=== PATIENT | female | born 1990 | race Asian ===

== ENCOUNTER 2018-10-20 10:51 | Emergency (ER) | payer OTHER ==
[2018-10-20] MEDS ORDERED: Acetaminophen/HYDROcodone 325-5 MG Tab PO ONE (11:46)
--- NOTE | 2018-10-20 11:54 | EDM.PDOC ---
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 She states her LMP was . She had a + test at home. She started bleeding heavily with large clots 2 weeks ago. She reports the bleeding has been intermittent, but she is having "severe cramping." She denies back pain, chills, fever, weakness or fatigue. She took 4 baby aspirin for the pain but continues to have pain. She is concerned she may have retained products. She has history . She reports being B positive. She is accompanied by her spouse. She does not have a compounding pharmacy technician or PCP. She recently moved her from the [facility]. She is in no apparent distress. Onset: Today Onset Date: 10/20/18 Onset Time: 09:00 Duration: Getting Worse Location: Reports: Abdomen, Pelvis Quality: Reports: Ache Severity: Mild Improves with: Reports: Other Worsens with: Reports: None Associated Symptoms: Denies: Chest Pain, Fever/Chills, Nausea/Vomiting, Shortness of Breath, Weakness Pelvic Pain Score (Numeric/FACES): 7 - Related Data Allergies Allergy/AdvReac Type Severity Reaction Status Date / Time No Known Allergies Allergy Verified 10/20/18 11:07 Home Meds: Home Meds Naproxen 250 mg PO BID PRN 10 Days #20 tablet 10/20/18 [Rx] Pnv No.95/Ferrous Fum/Folic AC [ Caplet] 1 each PO DAILY 10/20/18 [ History] Past Medical History - Past Health History Medical/Surgical History: Denies Medical/Surgical History Social & Family History - Tobacco Use Smoking Status *Q: Never Smoker - Recreational Drug Use Recreational Drug Use: No ED ROS GENERAL - Review of Systems Review Of Systems: See Below Constitutional: Denies: Fever, Chills HEENT: Reports: Glasses Respiratory: Denies: Shortness of Breath Cardiovascular: Denies: Chest Pain Endocrine: Reports: No Symptoms GI/Abdominal: Reports: Abdominal Pain. Denies: Constipation, Diarrhea : Reports: Irregular Menses, Pain Musculoskeletal: Reports: No Symptoms Skin: Reports: No Symptoms Neurological: Reports: No Symptoms Psychiatric: Reports: No Symptoms Hematologic/Lymphatic: Reports: No Symptoms Immunologic: Reports: No Symptoms ED EXAM, GI/ABD - Physical Exam Exam: See Below General Appearance: Alert, WD/WN, No Apparent Distress Respiratory/Chest: No Respiratory Distress, Lungs Clear, Normal Breath Sounds, No Accessory Muscle Use, Chest Non-Tender Cardiovascular: Normal Peripheral Pulses, Regular Rate, Rhythm, No Edema, No Gallop, No JVD, No Murmur, No Rub GI/Abdominal Exam: Normal Bowel Sounds, Soft, Non-Tender, No Organomegaly, No Distention, No Abnormal Bruit, No Mass, Pelvis Stable Back Exam: Normal Inspection, Full Range of Motion Extremities: Normal Inspection, Normal Range of Motion, Non-Tender, No Pedal Edema, Normal Capillary Refill Neurological: Alert, Oriented, CN II-XII Intact, Normal Cognition, Normal Gait, Normal Reflexes, No Motor/Sensory Deficits Psychiatric: Normal Affect, Normal Mood Skin Exam: Warm, Dry, Intact, Normal Color, No Rash Lymphatic: No Adenopathy Course - Vital Signs Last Recorded V/S: Last Vital Signs Temp 98.7 F 10/20/18 11:04 Pulse 81 10/20/18 11:04 Resp 18 10/20/18 11:04 BP 109/71 10/20/18 11:04 Pulse Ox 100 10/20/18 11:04 - Orders/Labs/Meds Orders: Active Orders 24 hr Category Date Time Status PATIENT RETYPE [BBK] Routine Lab 10/20/18 14:10 Ordered URINALYSIS W/O MICROSCOPIC [UA W/O MICROSCOPIC] [URIN] Lab 10/20/18 13:04 Ordered Stat Labs: Laboratory Tests 10/20/18 10/20/18 10/20/18 Range/Units 12:25 13:09 13:09 WBC 9.74 (3.98-10.04) K/mm3 RBC 4.59 (3.98-5.22) M/mm3 Hgb 12.0 (11.2-15.7) gm/L Hct 36.9 (34.1-44.9) % MCV 80.4 (79.4-94.8) fl MCH 26.1 (25.6-32.2) pg MCHC 32.5 (32.2-35.5) g/dl RDW Std Deviation 41.2 (36.4-46.3) fL Plt Count 233 (182-369) K/mm3 MPV 10.6 (9.4-12.3) fl Neut % (Auto) 78.8 H (34.0-71.1) % Lymph % (Auto) 14.6 L (19.3-51.7) % [place] % (Auto) 5.2 (4.7-12.5) % Eos % (Auto) 1.0 (0.7-5.8) Baso % (Auto) 0.2 (0.1-1.2) % Neut # (Auto) 7.67 H (1.56-6.13) K/mm3 Lymph # (Auto) 1.42 (1.18-3.74) K/mm3 [place] # (Auto) 0.51 H (0.24-0.36) K/mm3 Eos # (Auto) 0.10 (0.04-0.36) K/mm3 Baso # (Auto) 0.02 (0.01-0.08) K/mm3 Sodium (136-145) mEq/L Potassium (3.5-5.1) mEq/L Chloride (98-107) mEq/L Carbon Dioxide (21-32) mEq/L Anion Gap (5-15) BUN (7-18) mg/dL Creatinine (0.55-1.02) mg/dL Est Cr Clr Drug Dosing mL/min Estimated GFR (MDRD) (>60) mL/min BUN/Creatinine Ratio (14-18) Glucose (74-106) mg/dL Calcium (8.5-10.1) mg/dL Total Bilirubin (0.2-1.0) mg/dL AST (15-37) U/L ALT (14-59) U/L Alkaline Phosphatase (46-116) U/L Total Protein (6.4-8.2) g/dl Albumin (3.4-5.0) g/dl Globulin gm/dL Albumin/Globulin Ratio (1-2) HCG, Quant 2794.0 mIU/mL Urine HCG, Qual Positive (NEGATIVE) Blood Type 10/20/18 10/20/18 Range/Units 13:09 13:09 WBC (3.98-10.04) K/mm3 RBC (3.98-5.22) M/mm3 Hgb (11.2-15.7) gm/L Hct (34.1-44.9) % MCV (79.4-94.8) fl MCH (25.6-32.2) pg MCHC (32.2-35.5) g/dl RDW Std Deviation (36.4-46.3) fL Plt Count (182-369) K/mm3 MPV (9.4-12.3) fl Neut % (Auto) (34.0-71.1) % Lymph % (Auto) (19.3-51.7) % [place] % (Auto) (4.7-12.5) % Eos % (Auto) (0.7-5.8) Baso % (Auto) (0.1-1.2) % Neut # (Auto) (1.56-6.13) K/mm3 Lymph # (Auto) (1.18-3.74) K/mm3 [place] # (Auto) (0.24-0.36) K/mm3 Eos # (Auto) (0.04-0.36) K/mm3 Baso # (Auto) (0.01-0.08) K/mm3 Sodium 138 (136-145) mEq/L Potassium 3.8 (3.5-5.1) mEq/L Chloride 103 (98-107) mEq/L Carbon Dioxide 26 (21-32) mEq/L Anion Gap 12.8 (5-15) BUN 6 L (7-18) mg/dL Creatinine 0.7 (0.55-1.02) mg/dL Est Cr Clr Drug Dosing 93.40 mL/min Estimated GFR (MDRD) > 60 (>60) mL/min BUN/Creatinine Ratio 8.6 L (14-18) Glucose 97 (74-106) mg/dL Calcium 8.7 (8.5-10.1) mg/dL Total Bilirubin 0.9 (0.2-1.0) mg/dL AST 14 L (15-37) U/L ALT 16 (14-59) U/L Alkaline Phosphatase 57 (46-116) U/L Total Protein 7.3 (6.4-8.2) g/dl Albumin 3.7 (3.4-5.0) g/dl Globulin 3.6 gm/dL Albumin/Globulin Ratio 1.0 (1-2) HCG, Quant mIU/mL Urine HCG, Qual (NEGATIVE) Blood Type B POSITIVE Meds: Medications Discontinued Medications Generic Name Dose Route Start Last Admin Trade Name Finn PRN Reason Stop Dose Admin Hydrocodone Bitart/Acetaminophen 1 tab 10/20/18 11:46 10/20/18 12:32 [place] 325-5 Mg PO 10/20/18 11:47 1 tab ONETIME ONE Administration - Re-Assessments/Exams Free Text/Narrative Re-Assessment/Exam: 10/20/18 14:03 28 y/o female presented to ER with cc severe cramping after having a miscarriage 2 weeks ago. Her labs were as follows WBC 9.74 H & H 12.0/36.9 NA + 138 K+ 3.8 CHOL 103 CO2 26 BUN 6 CREATINE 0.7. HCG positive, + B ABO. HCG quantitative is 2794.0 Her ultrasound complicated fluid within the pelvis possibly due to blood. complicated area within the left ovary measuring up to 2.9 cm presumably due to hemorrhagic cyst. incidental nabothian cyst. no endometrial abnormality is seen. I will discharge home with Naprosyn for menstrual cramps. I recommend she follow up with compounding pharmacy technician. Referral was given for Dr. Shaffer. Instructed to return to the ER for any new or acute worsening symptoms. She verbalized understanding and is comfortable with plan for discharge. Departure - Departure Time of Disposition: 14:08 Disposition: Home, Self-Care 01 Clinical Impression: Pain in pelvis, Dysmenorrhea, Nabothian (gland) cyst or follicle - Discharge Information Prescriptions: Naproxen 250 mg PO BID PRN 10 Days #20 tablet PRN Reason: pelvic pain Instructions: Pelvic Pain, Female, [id number], Pain Without a Known Cause, Dysmenorrhea, [id number] Referrals: PCP,None [Primary Care Provider] - Howard Matthew MD [Physician] - Forms: ED Department Discharge Additional Instructions: You have been diagnosis with pelvic pain and cramping. Your ultrasound revealed nabothian cyst and a hemorrhagic cyst. I recommend you follow up with compounding pharmacy technician. I gave you a referral for Dr. Matthew. You have been given a RX for Naprosyn take this as needed for cramping and pain. Return to the ER for any new or acute worsening symptoms. - My Orders Last 24 Hours: My Active Orders 10/20/18 13:04 URINALYSIS W/O MICROSCOPIC [UA W/O MICROSCOPIC] [URIN] Stat 10/20/18 14:10 PATIENT RETYPE [BBK] Routine - Assessment/Plan Last 24 Hours: My Active Orders 10/20/18 13:04 URINALYSIS W/O MICROSCOPIC [UA W/O MICROSCOPIC] [URIN] Stat 10/20/18 14:10 PATIENT RETYPE [BBK] Routine
--- NOTE | 2018-10-20 13:13 | US ---
Pelvic ultrasound: Multiple real-time images were obtained transvaginally. Uterus is anteverted. No endometrial abnormality is seen. Slightly complicated fluid is seen within the cul-de-sac and difficult to exclude small amount of blood. Complicated area is noted within the left ovary measuring up to 2.9 cm in greatest dimension presumably representing hemorrhagic cyst. Follicles are seen within the ovaries. Incidental nabothian cyst is noted. Measurements: Uterus: Length 10.0 cm, AP height 4.5 cm, transverse width 6.5 cm Right ovary: 3.4 x 1.5 x 2.1 cm Left ovary: 6.8 x 4.7 x 4.4 cm Impression: 1. Complicated fluid within the pelvis possibly due to blood. 2. Complicated area within the left ovary measuring up to 2.9 cm presumably due to hemorrhagic cyst. 3. Incidental nabothian cyst. 4. No endometrial abnormality is seen. Diagnostic code #3
== END 2018-10-20 14:31 | disposition home or self-care (01) ==
LOC: JD.ED 10:51
DX: O03.6 Delayed or excessive hemorrhage following complete or unspecified spontaneous abortion (principal); N94.6 Dysmenorrhea, unspecified; N88.8 Other specified noninflammatory disorders of cervix uteri
CPT/HCPCS: 36415; 76830; 80053; 81025; 84702; 85025; 86900; 86901; 99284; A9270; 99283

== ENCOUNTER 2018-10-21 16:24 | Day surgery (SDC) | payer OTHER ==
[2018-10-21] MEDS ORDERED: HYDROmorphone 0.5 MG/0.5 ML Syringe IVPUSH STA (16:57)
[2018-10-21] MEDS ORDERED: Sodium Chloride 0.9% 1,000 ML ONE (17:50)
[2018-10-21] MEDS ORDERED: Lactated Ringers 1,000 ML IV ONE (17:58)
[2018-10-21] MEDS ORDERED: Sodium Chloride 0.9% 1,000 ML IV ONE (18:00)
--- NOTE | 2018-10-21 18:39 | EDM.PDOC ---
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 She was seen in the ED yesterday for similar symptoms, was sent home with Naprosyn and recommended f/u with CERAMIC TILE SETTER. She received Wheeler while in the ED and states she was "out of it all night", he suspects from the medication. Also tried ibuprofen which provided some relief. The pain was still constant last night, but there was a sudden increase in pain this AM "10 times worse than yesterday" accompanied by new onset radiating pain from the pelvis to "the ribs" and lightheadedness. She states the pain is worse with movement and she "feels bloated" in the abdomen. She passed out today "at least 5 times" per the . She denies any F/C, but was nauseated and had 1 episode of emesis today that was "just water" per pt. She states her vaginal bleeding has also increased today, from spotting to almost filling a 1 pad. She has h/o of appendectomy in the [facility]. No current PCP or CERAMIC TILE SETTER; was referred yesterday to CERAMIC TILE SETTER Dr. Matthew. Right Lower Abdomen Pain Score (Numeric/FACES): 10 - Related Data Allergies Allergy/AdvReac Type Severity Reaction Status Date / Time No Known Allergies Allergy Verified 10/21/18 16:45 Home Meds: Home Meds Naproxen 250 mg PO BID PRN 10 Days #20 tablet 10/20/18 [Rx] Pnv No.95/Ferrous Fum/Folic AC [ Caplet] 1 each PO DAILY 10/20/18 [ History] Past Medical History - Past Health History Medical/Surgical History: Denies Medical/Surgical History HEENT History: Reports: Impaired Vision Cardiovascular History: Reports: None Respiratory History: Reports: None Gastrointestinal History: Reports: None Genitourinary History: Reports: None 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 REPAIRMAN History: Reports: Polycystic Ovaries, Musculoskeletal History: Reports: None Neurological History: Reports: None Psychiatric History: Reports: None Endocrine/Metabolic History: Reports: None Hematologic History: Reports: None Immunologic History: Reports: None Oncologic (Cancer) History: Reports: None Dermatologic History: Reports: None - Infectious Disease History Infectious Disease History: Reports: None - Past Surgical History Head Surgeries/Procedures: Reports: None Oncologic Surgical History: Reports: None Social & Family History - Family History Family Medical History: Noncontributory - Tobacco Use Smoking Status *Q: Never Smoker - Caffeine Use Caffeine Use: Reports: Soda - Recreational Drug Use Recreational Drug Use: No ED ROS GENERAL - Review of Systems Review Of Systems: See Below Constitutional: Reports: Weakness. Denies: Fever, Chills HEENT: Reports: No Symptoms Respiratory: Reports: Shortness of Breath, Pleuritic Chest Pain. Denies: Cough Cardiovascular: Reports: Lightheadedness, Syncope. Denies: Chest Pain, Blood Pressure Problem, Dyspnea on Exertion, Edema, Palpitations Endocrine: Reports: Fatigue GI/Abdominal: Reports: Abdominal Pain (lower quadrants> upper quadrants; radiates from pelvis to "the ribs"), Nausea, Vomiting (x1 earlier today). Denies: Black Stool, Bloody Stool, Constipation, Diarrhea, Decreased Appetite, Hematochezia : Reports: Pain (pelvic pain, "10x worse than yesterday"), Other (vaginal bleeding; spotting increased to 1 pad today). Denies: Discharge, Dysuria, Flank Pain, Frequency, Hematuria Musculoskeletal: Reports: No Symptoms Skin: Reports: Pallor, Diaphoresis Neurological: Reports: Dizziness, Syncope, Difficulty Walking (2/2 dizziness), Weakness. Denies: Headache Psychiatric: Reports: No Symptoms ED EXAM, GI/ABD - Physical Exam Exam: See Below Exam Limited By: No Limitations General Appearance: Alert, WD/WN, Moderate Distress Eyes: Bilateral: Normal Appearance, EOMI Ears: Normal External Exam, Hearing Grossly Normal Throat/Mouth: Normal Inspection, Normal Lips, Normal Teeth, Normal Gums, Normal Oropharynx, Normal Voice, No Airway Compromise Head: Atraumatic, Normocephalic Neck: Normal Inspection, Supple, Non-Tender, Full Range of Motion Respiratory/Chest: No Respiratory Distress, Lungs Clear, Normal Breath Sounds, No Accessory Muscle Use, Chest Non-Tender Cardiovascular: Normal Peripheral Pulses, Regular Rate, Rhythm, No Edema, No Gallop, No JVD, No Murmur, No Rub GI/Abdominal Exam: Soft, No Organomegaly, No Abnormal Bruit, No Mass, Pelvis Stable, Distended, Tender (lower quadrants), Abnormal Bowel Sounds (hyperactive) (Female) Exam: Deferred (pt had syncopal episode on the way to exam table) Back Exam: Normal Inspection Extremities: Normal Inspection, Normal Range of Motion, Non-Tender, Normal Capillary Refill, No Pedal Edema Neurological: Alert, Oriented, CN II-XII Intact, Normal Cognition, Normal Reflexes, No Motor/Sensory Deficits, Slow to Respond Psychiatric: Anxious, Tearful Skin Exam: Warm, Dry, Intact, Pallor Course - Vital Signs Last Recorded V/S: Last Vital Signs Temp 98.4 F 10/21/18 16:49 Pulse 75 10/21/18 16:49 Resp 14 10/21/18 16:49 BP 96/56 L 10/21/18 16:49 Pulse Ox 99 10/21/18 16:49 - Orders/Labs/Meds Orders: Active Orders 24 hr Category Date Time Status TYPE AND SCREEN [BBK] Stat Lab 10/21/18 17:30 Received Lactated Ringers [Ringers, Lactated] 1,000 ml Med 10/21/18 17:58 Active IV .BOLUS Sodium Chloride 0.9% [Normal Saline] 1,000 ml Med 10/21/18 18:00 Active IV ONETIME Transfuse PRBC [Transfuse Red Blood Cells] [COMM] Stat Oth 10/21/18 18:05 Ordered Medication Orders Lactated Ringer's (Ringers, Lactated) 1,000 mls @ 999 mls/hr IV .BOLUS ONE Stop: 10/21/18 18:58 Last Admin: 10/21/18 17:59 Dose: 999 mls/hr Sodium Chloride (Normal Saline) 1,000 mls @ 999 mls/hr IV ONETIME ONE Stop: 10/21/18 19:00 Last Admin: 10/21/18 18:01 Dose: 999 mls/hr Labs: Laboratory Tests 10/21/18 10/21/18 Range/Units 17:00 17:00 Hgb 10.8 L (11.2-15.7) gm/L Hct 33.4 L (34.1-44.9) % HCG, Quant 1333.0 mIU/mL Meds: Medications Generic Name Dose Route Start Last Admin Trade Name Jeremyq PRN Reason Stop Dose Admin Lactated Ringer's 1,000 mls @ 999 mls/hr 10/21/18 17:58 10/21/18 17:59 Ringers, Lactated IV 10/21/18 18:58 999 mls/hr .BOLUS ONE Administration Sodium Chloride 1,000 mls @ 999 mls/hr 10/21/18 18:00 10/21/18 18:01 Normal Saline IV 10/21/18 19:00 999 mls/hr ONETIME ONE Administration Discontinued Medications Generic Name Dose Route Start Last Admin Trade Name Jeremyq PRN Reason Stop Dose Admin Hydromorphone HCl 0.25 mg 10/21/18 16:57 10/21/18 17:00 Dilaudid IVPUSH 10/21/18 16:58 0.25 mg NOW STA Administration Sodium Chloride Confirm 10/21/18 17:50 10/21/18 18:03 Normal Saline Administered 10/21/18 17:51 Not Given Dose 1,000 mls @ as directed [facility] Re-Assessments/Exams Free Text/Narrative Re-Assessment/Exam: 10/21/18 16:57 Ordered Hgb and Hct, HCG Quantitative Dilaudid 0.25mg IV Push for pain 10/21/18 17:20 Hgb has dropped to 10.8 today (12 yesterday) Hct has dropped to 33.4 (36.9) HCG Quantitative has dropped to 1333 today (2794 yesterday)--> likely not Pt is TTP lower quadrants on exam. Abdomen feels "full". I suspect she is losing blood into the abdomen. Will do pelvic exam, Transvaginal U/S, and orthostatic VS. 10/21/18 17:30 Pt was put in a wheelchair by nursing and was on the way to [facility]ER[facility] TILE [facility] exam room when she passed out in the wheelchair. She did not fall. Nursing assisted her back into bed, 1L Bolus IVF started. At this time, she is hemodynamically unstable. I will not be able to perform the pelvic exam, orthostatics cannot be performed , and she will not be able to tolerate an U/S. I will call our on-call OBGYN Dr. Matthew for direction as she likely needs to go to the OR likely 2/2 internal bleeding. Type and Screen, PRBCs ordered (Blood Type B positive yesterday) 10/21/18 17:53 Called our on-call OBGYN Dr. Matthew and gave report. He will come see the patient. It is likely she will need to go to the OR for diagnostic laparoscopy to r/o either ectopic vs. ruptured hemorrhagic cyst. 10/21/18 18:10 Dr. Matthew talking with patient. Waiting for them to make the decision as to whether they would like to go to surgery. 10/21/18 18:39 Have transferred care to Dr. Matthew as he has taken pt to the OR for exploratory laparotomy. Departure - Departure Time of Disposition: 18:39 Disposition: DC/Tfer to Critical Access 66 Condition: Undetermined Clinical Impression: Hemorrhagic cyst, Syncope and collapse - Discharge Information *PRESCRIPTION DRUG MONITORING PROGRAM REVIEWED*: Not Applicable *COPY OF PRESCRIPTION DRUG MONITORING REPORT IN PATIENT LIDIA: Not Applicable Referrals: PCP,None [Primary Care Provider] - - My Orders Last 24 Hours: My Active Orders 10/21/18 17:30 TYPE AND SCREEN [BBK] Stat 10/21/18 17:58 Lactated Ringers [Ringers, Lactated] 1,000 ml IV .BOLUS 10/21/18 18:00 Sodium Chloride 0.9% [Normal Saline] 1,000 ml IV ONETIME 10/21/18 18:05 Transfuse PRBC [Transfuse Red Blood Cells] [COMM] Stat - Assessment/Plan Last 24 Hours: My Active Orders 10/21/18 17:30 TYPE AND SCREEN [BBK] Stat 10/21/18 17:58 Lactated Ringers [Ringers, Lactated] 1,000 ml IV .BOLUS 10/21/18 18:00 Sodium Chloride 0.9% [Normal Saline] 1,000 ml IV ONETIME 10/21/18 18:05 Transfuse PRBC [Transfuse Red Blood Cells] [COMM] Stat
--- NOTE | 2018-10-21 18:45 | PCM.HP ---
H&P History of Present Illness - General Date of Service: 10/21/18 Admit Problem/Dx: Intra-abdominal hemorrhage due to suspected hemorrhagic ovarian cyst Source of Information: Patient History Limitations: Reports: No Limitations - History of Present Illness Initial Comments - Free Text/Narative: Violeta Mendoza is a 28-year-old who presented to the emergency department for worsening abdominal pain this afternoon. She was seen yesterday in the emergency department and had an ultrasound performed at that time that showed, complicated fluid within the pelvis and a suspected hemorrhagic ovarian cyst on the left ovary measuring up to and 2.9 cm. She was discharged home with narcotics for pain control and continued to have pain throughout the evening. Later in the evening she had worsening of her pain that was not being able to be controlled by the narcotic medications and she had loss of consciousness at that time. Her partner reports that she lost consciousness approximately 4 more times between last evening and before arriving to the emergency department today. She reports that her pain is worse today than it was yesterday. It is a sharp pain in her lower abdomen but now is radiating into her upper abdomen especially on the right side. She rates the pain at 10/ 10. The pain is worse with movement. She reports that she does feel somewhat diaphoretic with this pain. Her significant other reports that she looks somewhat pale compared to her usual color. She had 1 episode of emesis but denies any continuing nausea. Patient did have a spontaneous approximately 3 weeks ago and has had light spotting today where she was soaking a light pad throughout the day. She is not passing any clots at this time. Onset of Symptoms: Reports: Gradual (Worsening since yesterday) Symptom Onset Date: 10/20/18 Duration of Symptoms: Reports: Constant Location: Reports: Abdomen, Pelvis Quality: Reports: Pressure, Sharp, Stabbing Severity: Severe Improves with: Reports: None Worsens with: Reports: Movement Associated Symptoms: Reports: Diaphoresis, Nausea/Vomiting. Denies: Fever/ Chills Right Lower Abdomen Pain Score (Numeric/FACES): 10 - Related Data Allergies/Adverse Reactions: Allergies Allergy/AdvReac Type Severity Reaction Status Date / Time No Known Allergies Allergy Verified 10/21/18 16:45 Home Medications: Home Meds Naproxen 250 mg PO BID PRN 10 Days #20 tablet 10/20/18 [Rx] Pnv No.95/Ferrous Fum/Folic AC [ Caplet] 1 each PO DAILY 10/20/18 [ History] Past Medical History - Past Health History Medical/Surgical History: Denies Medical/Surgical History HEENT History: Reports: Impaired Vision Cardiovascular History: Reports: None Respiratory History: Reports: None Gastrointestinal History: Reports: None Genitourinary History: Reports: None 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, Musculoskeletal History: Reports: None Neurological History: Reports: None Psychiatric History: Reports: None Endocrine/Metabolic History: Reports: None Hematologic History: Reports: None Immunologic History: Reports: None Oncologic (Cancer) History: Reports: None Dermatologic History: Reports: None - Infectious Disease History Infectious Disease History: Reports: None - Past Surgical History Head Surgeries/Procedures: Reports: None GI Surgical History: Reports: Appendectomy (Midline laparotomy) Oncologic Surgical History: Reports: None Social & Family History - Family History Family Medical History: Noncontributory - Tobacco Use Smoking Status *Q: Never Smoker - Caffeine Use Caffeine Use: Reports: Soda - Alcohol Use Alcohol Use History: No - Recreational Drug Use Recreational Drug Use: No H&P Review of Systems - Review of Systems: Review Of Systems: See Below General: Reports: Weakness, Fatigue. Denies: Fever, Chills, Malaise Pulmonary: Denies: Shortness of Breath, Wheezing, Cough Cardiovascular: Denies: Chest Pain, Palpitations, Dyspnea on Exertion Gastrointestinal: Reports: Abdominal Pain, Nausea, Vomiting. Denies: Constipation, Diarrhea Genitourinary: Denies: Dysuria, Frequency, Burning, Pain, Urgency Skin: Reports: Diaphoresis, Change in Color. Denies: Rash, Lesions Exam - Exam Exam: See Below - Vital Signs Vital Signs: Last Vital Signs Temp 36.9 C 10/21/18 16:49 Pulse 75 10/21/18 16:49 Resp 14 10/21/18 16:49 BP 96/56 L 10/21/18 16:49 Pulse Ox 99 10/21/18 16:49 Weight: 49.895 kg - Exam General: Alert, Oriented HEENT: Conjunctiva Clear, EOMI Neck: Supple, Trachea Midline Lungs: Clear to Auscultation, Normal Respiratory Effort Cardiovascular: Regular Rate, Regular Rhythm GI/Abdominal Exam: Soft, Distended, Guarding. No: Rigid, Rebound (Female) Exam: Deferred Extremities: No Pedal Edema, Normal Capillary Refill Skin: Warm, Dry, Intact Neuro Extensive - Mental Status: Normal Mood/Affect Psychiatric: Alert, Normal Affect, Normal Mood - Patient Data Lab Results Last 24 hrs: Laboratory Results - last 24 hr 10/21/18 10/21/18 Range/Units 17:00 17:00 Hgb 10.8 L (11.2-15.7) gm/L Hct 33.4 L (34.1-44.9) % HCG, Quant 1333.0 mIU/mL Result Diagrams: 10/21/18 17:00 Imaging Impressions Last 24 hrs: Transvaginal ultrasound from 10/20/2018 Findings: Uterus is anteverted. No endometrial abnormality is seen. Slightly complicated fluid is seen within the cul-de-sac and difficult to exclude small amount of blood., Complicated areas noted within the left ovary measuring up to 2.9 cm in greatest dimension presumably representing hemorrhagic cyst. Follicles are seen within the ovaries. Incidental nabothian cyst is noted. Measurements: Uterus: Length 10.0 cm, AP height 4.5 cm, transverse with 6.57 m Right ovary: 3.4 x 1.5 x 2.1 cm Left ovary: 6.8 x 4.7 x 4.4 cm Impression: 1. Complicated fluid within the pelvis possibly due to blood. 2. Complicated area within the left ovary measuring up to 2.9 cm presumably due to hemorrhagic cyst. 3. Incidental nabothian cyst. 4. no endometrial abnormality is seen. - Problem List (1) Hemorrhagic cyst SNOMED Code(s): 346745696, [id number] ICD Code: [id number] - Status: Acute Current Visit: Yes (2) Syncope and collapse SNOMED Code(s): 827313721 ICD Code: R55 - SYNCOPE AND COLLAPSE Status: Acute Current Visit: Yes (3) Pain in pelvis SNOMED Code(s): 24143345 ICD Code: R10.2 - PELVIC AND PERINEAL PAIN Status: Acute Current Visit: No Problem List Initiated/Reviewed/Updated: Yes Orders Last 24hrs: Active Orders 24 hr Category Date Time Status TYPE AND SCREEN [BBK] Stat Lab 10/21/18 17:30 Received Lactated Ringers [Ringers, Lactated] 1,000 ml Med 04/30/19 17:58 Active IV .BOLUS Sodium Chloride 0.9% [Normal Saline] 1,000 ml Med 10/21/18 18:00 Active IV ONETIME Transfuse PRBC [Transfuse Red Blood Cells] [COMM] Stat Oth 10/21/18 18:05 Ordered Medication Orders Lactated Ringer's (Ringers, Lactated) 1,000 mls @ 999 mls/hr IV .BOLUS ONE Stop: 10/21/18 18:58 Last Admin: 10/21/18 17:59 Dose: 999 mls/hr Sodium Chloride (Normal Saline) 1,000 mls @ 999 mls/hr IV ONETIME ONE Stop: 10/21/18 19:00 Last Admin: 10/21/18 18:01 Dose: 999 mls/hr Assessment/Plan Comment:: 28-year-old female with suspected intra-abdominal hemorrhage and abdominal/pelvic pain due to hemorrhagic cyst Patient has had drop in her hemoglobin from 12.0 on 10/20/2018 down to 10.8 today. She is having significant pain and has had multiple episodes of loss of consciousness. Discussed with patient that given the fact that this is most likely a ruptured hemorrhagic cyst leading to intra-abdominal bleeding she would have several options available to her. Discussed that she could consider watchful waiting with pain control as these typically resolve on their own without any additional intervention or she could consider having laparoscopy. Discussed with patient that this would likely be able to be performed laparoscopically and we would perform a diagnostic laparoscopy with possible ovarian cystectomy, possible oophorectomy, possible lysis of adhesions, possible laparotomy. Discussed the risks and benefits of both of these options and she desired to proceed with surgery. Consents were signed. Patient will be taken back to the OR for diagnostic laparoscopy with possible ovarian cystectomy, possible nephrectomy, possible lysis of adhesions and possible laparotomy. Patient currently having LR fluid bolus and we will continue LR at 125 mL per hour after bolus No antibiotics indicated for clean procedure We will monitor patient to see how she is doing after surgery to determine if she should be admitted for observation after or if she will be able to be discharged home Howard Matthew M.D. 6:54 PM 10/21/2018
--- NOTE | 2018-10-21 18:55 | PCM.PREANE ---
Preanesthetic Assessment - Anesthesia/Transfusion/Family Hx Anesthesia History: Prior Anesthesia Without Reaction Family History of Anesthesia Reaction: No Transfusion History: No Prior Transfusion(s) Intubation History: Unknown - Review of Systems Pulmonary: No Symptoms Cardiovascular: Palpitations, Lightheadedness Gastrointestinal: No Symptoms, Nausea, Vomiting Neurological: No Symptoms (motion sickness), Syncope Other: Reports: None - Physical Assessment NPO Status Date: 10/21/18 NPO Status Time: 12:45 Pulse: 75 O2 Sat by Pulse Oximetry: 99 Respiratory Rate: 14 Blood Pressure: 96/56 Temperature: 36.9 C Vital Signs: Last Vital Signs Temp 36.9 C 10/21/18 16:49 Pulse 75 10/21/18 16:49 Resp 14 10/21/18 16:49 BP 96/56 L 10/21/18 16:49 Pulse Ox 99 10/21/18 16:49 Height: 1.68 m Weight: 49.895 kg ASA Class: 2E Mental Status: Alert & Oriented x3 Airway Class: Mallampati = 2 Dentition: Reports: Normal Dentition, Missing Tooth/Teeth, Caries Thyro-Mental Finger Breadths: 3 Mouth Opening Finger Breadths: 3 ROM/Head Extension: Full Lungs: Clear to Auscultation, Normal Respiratory Effort Cardiovascular: Regular Rate, Regular Rhythm, No Murmurs - Lab Values: Laboratory Last Values Hgb 10.8 gm/L (11.2-15.7) L 10/21/18 17:00 Hct 33.4 % (34.1-44.9) L 10/21/18 17:00 HCG, Quant 1333.0 mIU/mL 10/21/18 17:00 Above labs reviewed and noted. - Allergies Allergies/Adverse Reactions: Allergies Allergy/AdvReac Type Severity Reaction Status Date / Time No Known Allergies Allergy Verified 10/21/18 16:45 - Anesthesia Plan Pre-Op Medication Ordered: None - Acknowledgements Anesthesia Type Planned: General Anesthesia Pt an Appropriate Candidate for the Planned Anesthesia: Yes Alternatives and Risks of Anesthesia Discussed w Pt/Guardian: Yes Pt/Guardian Understands and Agrees with Anesthesia Plan: Yes PreAnesthesia Questionnaire - Past Health History Medical/Surgical History: Denies Medical/Surgical History HEENT History: Reports: Impaired Vision Cardiovascular History: Reports: None Respiratory History: Reports: None Gastrointestinal History: Reports: None Genitourinary History: Reports: None 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, Musculoskeletal History: Reports: None Neurological History: Reports: None Psychiatric History: Reports: None Endocrine/Metabolic History: Reports: None Hematologic History: Reports: None Immunologic History: Reports: None Oncologic (Cancer) History: Reports: None Dermatologic History: Reports: None - Infectious Disease History Infectious Disease History: Reports: None - Past Surgical History Head Surgeries/Procedures: Reports: None GI Surgical History: Reports: Appendectomy (Midline laparotomy) Oncologic Surgical History: Reports: None - SUBSTANCE USE Smoking Status *Q: Never Smoker Recreational Drug Use History: No - HOME MEDS Home Medications: Home Meds Naproxen 250 mg PO BID PRN 10 Days #20 tablet 10/20/18 [Rx] Pnv No.95/Ferrous Fum/Folic AC [ Caplet] 1 each PO DAILY 10/20/18 [ History] - CURRENT (IN HOUSE) MEDS Current Meds: Current Medications Lactated Ringer's (Ringers, Lactated) 1,000 mls @ 999 mls/hr IV .BOLUS ONE Stop: 10/21/18 18:58 Last Admin: 10/21/18 17:59 Dose: 999 mls/hr Sodium Chloride (Normal Saline) 1,000 mls @ 999 mls/hr IV ONETIME ONE Stop: 10/21/18 19:00 Last Admin: 10/21/18 18:01 Dose: 999 mls/hr Discontinued Medications Hydromorphone HCl (Dilaudid) 0.25 mg IVPUSH NOW STA Stop: 10/21/18 16:58 Last Admin: 10/21/18 17:00 Dose: 0.25 mg Sodium Chloride (Normal Saline) Confirm Administered Dose 1,000 mls @ as directed .ROUTE .STK-MED ONE Stop: 10/21/18 17:51 Last Admin: 10/21/18 18:03 Dose: Not Given
[2018-10-21] MEDS ORDERED: Bupivacaine 0.5% 30 ML SDV ONE (18:57)
[2018-10-21] MEDS ORDERED: Dexamethasone 4 MG/ML 5 ML MDV ONE (19:08)
[2018-10-21] MEDS ORDERED: Etomidate 2 MG/ML 20 ML SDV IVPUSH ONE (19:08)
[2018-10-21] MEDS ORDERED: fentaNYL 100 MCG/2 ML SDV ONE ×2 (19:08→21:06)
[2018-10-21] MEDS ORDERED: Lactated Ringers 1,000 ML ONE ×3 (19:08→21:43)
[2018-10-21] MEDS ORDERED: Lidocaine 1% 6 ML ONE (19:08)
[2018-10-21] MEDS ORDERED: Rocuronium 50 MG/5 ML Vial ONE (19:08)
[2018-10-21] MEDS ORDERED: HYDROmorphone 0.5 MG/0.5 ML Syringe ONE ×2 (19:08→20:14)
[2018-10-21] MEDS ORDERED: Ketorolac 30 MG/ML SDV ONE (19:08)
[2018-10-21] MEDS ORDERED: Succinylcholine/Normal Saline 100 MG/5 ML Syringe ONE (19:08)
[2018-10-21] MEDS ORDERED: Ondansetron 4 MG/2 ML SDV ONE (19:08)
[2018-10-21] MEDS ORDERED: Midazolam 1 MG/ML 2 ML SDV ONE (19:09)
[2018-10-21] MEDS ORDERED: ePHEDrine 50 MG/ML SDV IVPUSH PRN (19:49)
[2018-10-21] MEDS ORDERED: HYDROmorphone 0.5 MG/0.5 ML Syringe IVPUSH PRN ×2 (19:49→23:29)
[2018-10-21] MEDS ORDERED: fentaNYL 100 MCG/2 ML SDV IVPUSH PRN (19:49)
[2018-10-21] MEDS ORDERED: Ondansetron 4 MG/2 ML SDV IVPUSH PRN (19:49)
[2018-10-21] MEDS ORDERED: diphenhydrAMINE 50 MG/ML SDV IVPUSH PRN (19:49)
[2018-10-21] MEDS ORDERED: Scopolamine 1.5 MG Transdermal Patch TRDERM ONE (19:50)
[2018-10-21] MEDS ORDERED: Neostigmine Methylsulfate 1 MG/ML 5 ML Syringe ONE (19:59)
[2018-10-21] MEDS ORDERED: Phenylephrine 1 MG in Sodium Chloride 0.9% 10 ML IV SCH (20:00)
[2018-10-21] MEDS ORDERED: ePHEDrine/Normal Saline 25 MG/5 ML Syringe ONE (20:00)
--- NOTE | 2018-10-21 22:30 | PCM.POSTAN ---
POST ANESTHESIA ASSESSMENT - MENTAL STATUS Mental Status: Alert - VITAL SIGNS Pulse Rate: 74 SaO2: 100 (2 LPM nasal cannula) Resp Rate: 11 Blood Pressure: 105/65 Temperature: 36.5 C - RESPIRATORY Respiratory Status: Respiratory Rate WNL, Airway Patent, O2 Saturation Stable, Supplemental Oxygen - CARDIOVASCULAR CV Status: Pulse Rate WNL, Blood Pressure Stable - GASTROINTESTINAL GI Status: No Symptoms - POST OP HYDRATION Hydration Status: Adequate & Stable
--- NOTE | 2018-10-21 22:57 | PCM.OPNOTE ---
- General Post-Op/Procedure Note Date of Surgery/Procedure: 10/21/18 Operative Procedure(s): Laparoscopic lysis of adhesions and left salpingectomy Findings: Approximately 400 mL of old blood noted within the abdomen and pelvis with removal of large portion of this using laparoscopic suction dip tanker. Grossly normal-appearing uterus and right fallopian tube and ovary. Left fallopian tube with dilation of the tube and bleeding noted from the fimbriated end with suspicion for possible ruptured ectopic . Left ovary with areas of suspected ruptured cyst with small amount of bleeding on initial evaluation. Adhesions were noted from the omentum to the anterior abdominal wall and the previous vertical midline incision. Left descending colon with adhesions to the left pelvic sidewall that were taken down using blunt force traction. Pre Op Diagnosis: Ruptured hemorrhagic cyst, abdominal and pelvic pain Post-Op Diagnosis: Same, suspected ruptured ectopic Anesthesia Technique: General ET Tube Primary Surgeon: Howard Matthew Anesthesia Provider: Danya Mckenzie Multi Care Technician: Guillermina Munguia Reason Multi Care Technician Was Necessary: Multi Care Technician with laparoscopic portion of the surgery Role of Multi Care Technician: Retraction and grasping tissue for the surgery Fluid Replacement, Intraop: 2,300 Output, Urine Amount: 500 EBL in mLs: 100 Complications: None Condition: Good Free Text/Narrative:: Duration of procedure: 167 minutes Procedure in detail: The patient was seen in the emergency department and risks , benefits, indications, and alternatives of the procedure were reviewed with the patient and she desired to proceed with a diagnostic laparoscopy, possible ovarian cystectomy, possible oophorectomy, possible lysis of adhesions, possible laparotomy. Consents were signed. The patient was taken back to the OR and given general anesthesia with an endotracheal tube which was placed without difficulty. She was placed in dorsal lithotomy position using Yellofin stirrups. She was prepped and draped in normal sterile fashion. A Green catheter was placed without difficulty. A sponge stick was placed inside the vagina for manipulation of the uterus. Attention was then turned to her left upper quadrant at the anterior axillary line at the level of the rib cage. This was injected with 0.5% Marcaine and a 5 mm stab incision was made with a scalpel and a Veress needle was then inserted through the incision above the most inferior rib. The gas was turned on, with an opening pressure of 7 mmHg. Pneumoperitoneum was continued until 15 mmHg pressure. A 5 mm trocar was then inserted under direct visualization through the incision inferior to the rib without difficulty. A global view of the abdomen was taken and noted to have adhesions from the omentum to the anterior abdomen from the umbilicus down to the pelvis. Attention was then turned to the suprapubic area and the skin was injected with local anesthetic. A skin incision was made using a scalpel. A 5 mm trocar was then inserted under direct visualization with laparoscope. There was noted to be significant amount of blood in the lower pelvis and abdomen. A laparoscopic suction dip tanker was then used to suction a majority of the blood from the pelvis. The anterior abdominal wall adhesions were then taken down using Harmonic scalpel. Attention was then turned to the right lower quadrant and an avascular area approximately nursing home between the ASIS and the umbilicus was visualized. This is injected with local anesthetic and a 5 mm stab incision was made. A 5 mm trocar was inserted under direct visualization. This was repeated in the left lower quadrant where an avascular space approximately nursing home between the ASIS and the umbilicus was visualized. It was again injected with local anesthetic and a stab incision was made with scalpel. A 5 mm trocar was inserted under direct visualization. The suction dip tanker was then used to remove more of the blood clot from the posterior cul-de-sac. After approximately 400 mL of blood clot were removed from the pelvis we were able to visualize the area with bleeding from the left adnexa. The uterus was inspected and felt to be overall normal in appearance. The right fallopian tube and ovary were inspected and felt to be overall normal. The left fallopian tube was dilated and had bleeding coming from the end of the fimbria. On inspection of the left ovary there was an area of a ruptured cyst with small amount of bleeding but not a significant amount of bleeding at time of evaluation. The area of bleeding from the left ovary was cauterized using the Harmonic scalpel. The left fallopian tube was further evaluated and felt that this may have been a ruptured ectopic given the dilation in the ampullary portion of the fallopian tube. On further inspection there was also noted to be an area of with suspected rupture. Decision was made to remove the left fallopian tube. The fallopian tube was in close proximity to the descending colon that was adhesed to the left lateral pelvic sidewall and unable to safely be removed without dissection of the colon away from the sidewall. The descending colon was then dissected away from the pelvic sidewall using blunt force traction. The fallopian tube was then far away from the colon to be safely excised from the mesosalpinx and broad ligament. The fimbriated end of the left fallopian tube was grasped and the Harmonic scalpel was used to transect the mesosalpinx to the uterine cornua. There was approximately 1 cm of the fallopian tube remaining after removal. The suprapubic port was then removed and replaced with a 12 mm laparoscopic port. A Endo Catch bag was inserted through the port and the left fallopian tube was placed into the Endo Catch bag and removed without difficulty. The mesosalpinx and broad ligament were evaluated for hemostasis and there is noted to be small amount of bleeding from the area of transection. The Harmonic scalpel was used to cauterize this area and hemostasis was noted. The suction dip tanker was again used to remove some of the remaining clot and blood from the pelvis. The case was completed at this time. Additional evaluation was made to ensure that there is not any additional bleeding and hemostasis was noted. The gas was then evacuated from the peritoneum and trocars removed. The suprapubic port fascia was closed using 0 Vicryl suture on a UR 6 needle without difficulty. The skin was then closed using a running suture of 4-0 Monocryl and covered with Dermabond. The remaining port sites were closed using 4-0 Monocryl suture in vertical mattress suture fashion and Dermabond. The case was completed at this time and all instruments were removed. The Green catheter was discontinued at this time. The sponge stick was removed from the vagina. The patient was awoken from general anesthesia and taken to the PACU for recovery in stable condition. Sponge, lap, needle, and instrument counts were correct x 2.
[2018-10-21] MEDS ORDERED: Acetaminophen/oxyCODONE 325-5 MG Tab PO PRN ×2 (23:29)
[2018-10-21] MEDS ORDERED: Ondansetron 4 MG Tab.DIS PO PRN (23:29)
[2018-10-22] MEDS ORDERED: Ketorolac 15 MG/ML SDV IVPUSH SCH (04:30)
[2018-10-22] MEDS ORDERED: Sodium Chloride 0.9% 250 ML IV SCH (07:15)
--- NOTE | 2018-10-22 08:16 | PCM48HPAN ---
Post Anesthesia Note - EVALUATION WITHIN 48HRS OF ANESTHETIC Vital Signs in Normal Range: Yes (Blood Pressure 95/49. Hgb 6.9 this morning. PRBCs ordered to be infused. ) Patient Participated in Evaluation: Yes Respiratory Function Stable: Yes Airway Patent: Yes Cardiovascular Function Stable: Yes Hydration Status Stable: Yes Pain Control Satisfactory: Yes Nausea and Vomiting Control Satisfactory: Yes Mental Status Recovered: Yes
--- NOTE | 2018-10-22 08:31 | PCM.SN ---
- Free Text/Narrative Note: Post Op Note Subjective: Patient reports feeling well overall. Pain increasing this morning but has not taken any oral medications. She has only been receiving Toradol IV overnight. Tolerating small amounts of clear fluids overnight without any nausea or vomiting. Feels somewhat hungry this morning and is planning to have breakfast later. Reports passing flatus. Voiding without difficulty. Ambulating without difficulty. She reports that with standing and walking to the bathroom she gets somewhat lightheaded but less so than yesterday and has not had any loss of consciousness. Objective: Vitals Vital Signs - 8 hr 10/22/18 10/22/18 10/22/18 00:35 01:04 01:30 Temperature Temperature [ 37.2 C 37.2 C Temporal] Pulse, Peripheral Pulse, 82 75 86 Peripheral [ Pulse Oximetry] Respiratory 16 16 Rate Blood Pressure Blood Pressure 93/47 L 92/50 L 93/49 L [Left Arm] O2 Sat by Pulse 99 98 98 Oximetry 10/22/18 10/22/18 10/22/18 02:10 03:00 04:00 Temperature Temperature [ 36.4 C 37.7 C Temporal] Pulse, Peripheral Pulse, 69 73 64 Peripheral [ Pulse Oximetry] Respiratory 14 12 14 Rate Blood Pressure Blood Pressure 93/51 L 89/48 L 93/43 L [Left Arm] O2 Sat by Pulse 100 99 98 Oximetry 10/22/18 10/22/18 06:47 07:36 Temperature 36.6 C Temperature [ Temporal] Pulse, 87 70 Peripheral Pulse, Peripheral [ Pulse Oximetry] Respiratory 20 Rate Blood Pressure 85/45 L 88/44 L Blood Pressure [Left Arm] O2 Sat by Pulse 100 99 Oximetry I/O: Intake & Output 10/20/18 10/21/18 10/22/18 10/23/18 06:59 06:59 06:59 06:59 Intake Total 3100 Output Total 1800 350 Balance 1300 -350 Gen: No acute distress, alert and oriented Lungs: Clear to auscultation bilaterally Heart: Regular rate and rhythm Abdomen: Soft, moderate tenderness in left lower quadrant and suprapubic area, no guarding or rebound tenderness, positive bowel sounds Incisions: Healing well, no bleeding or discharge, no erythema present, skin glue covering incisions Laboratory Tests 10/21/18 10/21/18 10/21/18 Range/Units 17:00 17:00 17:30 WBC (3.98-10.04) K/mm3 RBC (3.98-5.22) M/mm3 Hgb 10.8 L (11.2-15.7) gm/L Hct 33.4 L (34.1-44.9) % MCV (79.4-94.8) fl MCH (25.6-32.2) pg MCHC (32.2-35.5) g/dl RDW Std Deviation (36.4-46.3) fL Plt Count (182-369) K/mm3 MPV (9.4-12.3) fl Neut % (Auto) (34.0-71.1) % Lymph % (Auto) (19.3-51.7) % [place] % (Auto) (4.7-12.5) % Eos % (Auto) (0.7-5.8) Baso % (Auto) (0.1-1.2) % Neut # (Auto) (1.56-6.13) K/mm3 Lymph # (Auto) (1.18-3.74) K/mm3 [place] # (Auto) (0.24-0.36) K/mm3 Eos # (Auto) (0.04-0.36) K/mm3 Baso # (Auto) (0.01-0.08) K/mm3 Manual Slide Review HCG, Quant 1333.0 mIU/mL Blood Type B POSITIVE Gel Antibody Screen Negative Crossmatch See Detail 10/21/18 10/22/18 Range/Units 23:41 04:54 WBC 12.20 H 9.85 (3.98-10.04) K/mm3 RBC 2.90 L 2.65 L (3.98-5.22) M/mm3 Hgb 7.6 L D 6.9 L* (11.2-15.7) gm/L Hct 23.7 L 22.0 L (34.1-44.9) % MCV 81.7 83.0 (79.4-94.8) fl MCH 26.2 26.0 (25.6-32.2) pg MCHC 32.1 L 31.4 L (32.2-35.5) g/dl RDW Std Deviation 40.0 40.3 (36.4-46.3) fL Plt Count 175 L 188 (182-369) K/mm3 MPV 11.1 11.5 (9.4-12.3) fl Neut % (Auto) 94.4 H 85.5 H (34.0-71.1) % Lymph % (Auto) 3.1 L 6.7 L (19.3-51.7) % [place] % (Auto) 2.3 L 7.5 (4.7-12.5) % Eos % (Auto) 0 L 0 L (0.7-5.8) Baso % (Auto) 0.0 L 0.1 (0.1-1.2) % Neut # (Auto) 11.51 H 8.42 H (1.56-6.13) K/mm3 Lymph # (Auto) 0.38 L 0.66 L (1.18-3.74) K/mm3 [place] # (Auto) 0.28 0.74 H (0.24-0.36) K/mm3 Eos # (Auto) 0.00 L 0.00 L (0.04-0.36) K/mm3 Baso # (Auto) 0.00 L 0.01 (0.01-0.08) K/mm3 Manual Slide Review Abnormal smear Abnormal smear HCG, Quant mIU/mL Blood Type Gel Antibody Screen Crossmatch Assesment/Plan: 28-year-old with hemoperitoneum after suspected ruptured ectopic and acute blood loss anemia status post laparoscopic lysis of adhesions and left salpingectomy POD #1 Doing well No concerns at this time Routine post op care Monitor vitals Patient's hemoglobin was 6.9 this morning and with her lightheadedness suspect that she has acute blood loss anemia and recommended for her to receive 1 unit PRBC blood transfusion. Patient in agreement and this is ordered. We will check a CBC 6 hours after completion of the transfusion. Discontinue Toradol and start with ibuprofen 600 mg by mouth every 6 hours Continue Percocet as needed for pain control Anticipate discharge home today if she continues to improve and her blood count has improved after blood transfusion Howard Matthew MD 8:29 AM 10/22/2018
[2018-10-22] MEDS ORDERED: Docusate Sodium 100 MG Cap PO SCH (09:00)
[2018-10-22] MEDS ORDERED: Ibuprofen 600 MG Tab PO PRN (10:30)
--- NOTE | 2018-10-22 17:33 | PCM.DCSUM1 ---
Discharge Summary - Hospital Course Free Text/Narrative:: Violeta Mendoza is a 28-year-old who presented to the emergency department for worsening abdominal pain this afternoon. She was seen yesterday in the emergency department and had an ultrasound performed at that time that showed, complicated fluid within the pelvis and a suspected hemorrhagic ovarian cyst on the left ovary measuring up to and 2.9 cm. She was discharged home with narcotics for pain control and continued to have pain throughout the evening. Later in the evening she had worsening of her pain that was not being able to be controlled by the narcotic medications and she had loss of consciousness at that time. Her partner reports that she lost consciousness approximately 4 more times between last evening and before arriving to the emergency department today. She reports that her pain is worse today than it was yesterday. It is a sharp pain in her lower abdomen but now is radiating into her upper abdomen especially on the right side. She rates the pain at 10/ 10. The pain is worse with movement. She reports that she does feel somewhat diaphoretic with this pain. Her significant other reports that she looks somewhat pale compared to her usual color. She had 1 episode of emesis but denies any continuing nausea. HPI Initial Comments: Violeta Mendoza is a 28-year-old who presented to the emergency department for worsening abdominal pain this afternoon. She was seen yesterday in the emergency department and had an ultrasound performed at that time that showed, complicated fluid within the pelvis and a suspected hemorrhagic ovarian cyst on the left ovary measuring up to and 2.9 cm. She was discharged home with narcotics for pain control and continued to have pain throughout the evening. Later in the evening she had worsening of her pain that was not being able to be controlled by the narcotic medications and she had loss of consciousness at that time. Her partner reports that she lost consciousness approximately 4 more times between last evening and before arriving to the emergency department today. She reports that her pain is worse today than it was yesterday. It is a sharp pain in her lower abdomen but now is radiating into her upper abdomen especially on the right side. She rates the pain at 10/ 10. The pain is worse with movement. She reports that she does feel somewhat diaphoretic with this pain. Her significant other reports that she looks somewhat pale compared to her usual color. She had 1 episode of emesis but denies any continuing nausea. Brief History: Violeta Mendoza is a 28-year-old who presented to the emergency department for worsening abdominal pain this afternoon. She was seen yesterday in the emergency department and had an ultrasound performed at that time that showed, complicated fluid within the pelvis and a suspected hemorrhagic ovarian cyst on the left ovary measuring up to and 2.9 cm. She was discharged home with narcotics for pain control and continued to have pain throughout the evening. Later in the evening she had worsening of her pain that was not being able to be controlled by the narcotic medications and she had loss of consciousness at that time. Her partner reports that she lost consciousness approximately 4 more times between last evening and before arriving to the emergency department today. She reports that her pain is worse today than it was yesterday. It is a sharp pain in her lower abdomen but now is radiating into her upper abdomen especially on the right side. She rates the pain at 10/10. The pain is worse with movement. She reports that she does feel somewhat diaphoretic with this pain. Her significant other reports that she looks somewhat pale compared to her usual color. She had 1 episode of emesis but denies any continuing nausea. Diagnosis: Stroke: No - Discharge Data Discharge Date: 10/22/18 Discharge Disposition: Home, Self-Care 01 Condition: Good - Discharge Diagnosis/Problem(s) (1) Hemorrhagic cyst SNOMED Code(s): 049695616, [id number] ICD Code: [id number] - Status: Acute Current Visit: Yes (2) Syncope and collapse SNOMED Code(s): 049826116 ICD Code: R55 - SYNCOPE AND COLLAPSE Status: Acute Current Visit: Yes (3) Pain in pelvis SNOMED Code(s): 43451913 ICD Code: R10.2 - PELVIC AND PERINEAL PAIN Status: Acute Current Visit: No - Patient Summary/Data Operative Procedure(s) Performed: Laparoscopic lysis of adhesions and left salpingectomy Complications: Acute blood loss anemia requiring 1 unit pRBC transfusion Hospital Course: Patient initially presented to the emergency department for worsening abdominal pain in the setting of suspected hemorrhagic cyst. After evaluation by the emergency room provider she was noted to have a drop in her hemoglobin from 12.0 on 10/20/2018 down to 10.8 on 10/21/2018 when she was seen in the emergency department. The provider felt that she required surgical management and I agreed with her assessment on evaluation of the patient. She was taken to the OR for diagnostic laparoscopy and had lysis of adhesions and a left salpingectomy for suspected ruptured ectopic . Please see the full operative report for details. After surgery she was kept overnight for additional monitoring to ensure that she was doing okay. Her initial hemoglobin after surgery was 7.6 and she was overall doing well at that time. Her vitals were normal and she was having good pain control. In the morning of postoperative day #1 her hemoglobin was 6.9 and she was symptomatic with lightheadedness and dizziness upon standing and walking. Discussed with patient that I would recommend for her to have a unit of blood transfused and she was given 1 unit PRBCs. After transfusion she was doing well and her repeat hemoglobin was 7.5. Her pain was overall able to be controlled with oral medications. She was not having any lightheadedness or dizziness with ambulation. She was voiding without difficulty and passing flatus. She desired to be discharged home in the late afternoon of postoperative day #1. She will follow-up in the clinic in 2 weeks or earlier as needed for any problems as they may arise. - Patient Instructions Diet: Regular Diet as Tolerated Activity: Apply Ice, As Tolerated, No Lifting Over 25 Pounds Activity, Other: Nothing in the vagina for 2 weeks Driving: Do Not Drive (while taking narcotic medications or having significant pain.) Showering/Bathing: May Shower Wound/Incision Care: Keep Operative Site/Wound Site Clean and Dry Notify Provider of: Fever, Increased Pain, Swelling and Redness, Drainage, Nausea and/or Vomiting Other/Special Instructions: Please contact our office if you're having heavy vaginal bleeding enough to soak a pad in less than an hour for several hours. You should alternate pain medications for control of her pain until it improves. You may take ibuprofen 600 mg (3 tablets) every 6 hours or the naproxen as prescribed by the emergency department. You may also use Percocet and Tylenol to control your pain. You can take up to 2 tablets every 6 hours of the Percocet or Tylenol. If you have nausea or vomiting you may use Zofran that was sent to your pharmacy to help with these symptoms. - Discharge Plan *PRESCRIPTION DRUG MONITORING PROGRAM REVIEWED*: Yes *COPY OF PRESCRIPTION DRUG MONITORING REPORT IN PATIENT LIDIA: No (no patient in the system) Prescriptions/Med Rec: Acetaminophen/oxyCODONE [Percocet 325-5 MG] 1 - 2 tab PO Q6H PRN #30 tablet PRN Reason: Pain Ondansetron [Zofran ODT] 4 mg PO Q4H PRN #30 tab.dis PRN Reason: Nausea/Vomiting Home Medications: Home Meds Pnv No.95/Ferrous Fum/Folic AC [ Caplet] 1 each PO DAILY 10/20/18 [ History] Acetaminophen/oxyCODONE [Percocet 325-5 MG] 1 - 2 tab PO Q6H PRN #30 tablet 07/12 [Rx] Docusate Sodium [Colace] 100 mg PO BID cap 10/22/18 [Rx] Ibuprofen [Motrin] 600 mg PO Q6H PRN tablet 10/22/18 [Rx] Ondansetron [Zofran ODT] 4 mg PO Q4H PRN #30 tab.dis 10/22/18 [Rx] Patient Handouts: Salpingectomy, Care After Referrals: PCP,None [Primary Care Provider] - Howard Matthew MD [Physician] - - Discharge Summary/Plan Comment DC Time >30 min.: No - Patient Data Vitals - Most Recent: Last Vital Signs Temp 36.7 C 10/22/18 11:43 Pulse 78 10/22/18 14:43 Resp 24 H 10/22/18 14:43 BP 93/49 L 10/22/18 14:43 Pulse Ox 99 10/22/18 14:43 Weight - Most Recent: 49.895 kg I&O - Last 24 hours: Intake & Output 10/22/18 10/22/18 10/22/18 06:59 14:59 22:59 Intake Total 3100 640 500 Output Total 1300 350 850 Balance 1800 290 -350 Lab Results - Last 24 hrs: Laboratory Results - last 24 hr 10/21/18 10/21/18 10/21/18 Range/Units 17:00 17:30 23:41 WBC 12.20 H (3.98-10.04) K/mm3 RBC 2.90 L (3.98-5.22) M/mm3 Hgb 7.6 L D (11.2-15.7) gm/L Hct 23.7 L (34.1-44.9) % MCV 81.7 (79.4-94.8) fl MCH 26.2 (25.6-32.2) pg MCHC 32.1 L (32.2-35.5) g/dl RDW Std Deviation 40.0 (36.4-46.3) fL Plt Count 175 L (182-369) K/mm3 MPV 11.1 (9.4-12.3) fl Neut % (Auto) 94.4 H (34.0-71.1) % Lymph % (Auto) 3.1 L (19.3-51.7) % [place] % (Auto) 2.3 L (4.7-12.5) % Eos % (Auto) 0 L (0.7-5.8) Baso % (Auto) 0.0 L (0.1-1.2) % Neut # (Auto) 11.51 H (1.56-6.13) K/mm3 Lymph # (Auto) 0.38 L (1.18-3.74) K/mm3 [place] # (Auto) 0.28 (0.24-0.36) K/mm3 Eos # (Auto) 0.00 L (0.04-0.36) K/mm3 Baso # (Auto) 0.00 L (0.01-0.08) K/mm3 Manual Slide Review Abnormal smear HCG, Quant 1333.0 mIU/mL Blood Type B POSITIVE Gel Antibody Screen Negative Crossmatch See Detail 10/22/18 10/22/18 Range/Units 04:54 15:02 WBC 9.85 8.63 (3.98-10.04) K/mm3 RBC 2.65 L 2.80 L (3.98-5.22) M/mm3 Hgb 6.9 L* 7.5 L (11.2-15.7) gm/L Hct 22.0 L 23.7 L (34.1-44.9) % MCV 83.0 84.6 (79.4-94.8) fl MCH 26.0 26.8 (25.6-32.2) pg MCHC 31.4 L 31.6 L (32.2-35.5) g/dl RDW Std Deviation 40.3 44.8 (36.4-46.3) fL Plt Count 188 158 L (182-369) K/mm3 MPV 11.5 11.1 (9.4-12.3) fl Neut % (Auto) 85.5 H 69.7 (34.0-71.1) % Lymph % (Auto) 6.7 L 18.9 L (19.3-51.7) % [place] % (Auto) 7.5 10.5 (4.7-12.5) % Eos % (Auto) 0 L 0.7 (0.7-5.8) Baso % (Auto) 0.1 0.1 (0.1-1.2) % Neut # (Auto) 8.42 H 6.01 (1.56-6.13) K/mm3 Lymph # (Auto) 0.66 L 1.63 (1.18-3.74) K/mm3 [place] # (Auto) 0.74 H 0.91 H (0.24-0.36) K/mm3 Eos # (Auto) 0.00 L 0.06 (0.04-0.36) K/mm3 Baso # (Auto) 0.01 0.01 (0.01-0.08) K/mm3 Manual Slide Review Abnormal smear Abnormal smear HCG, Quant mIU/mL Blood Type Gel Antibody Screen Crossmatch Med Orders - Current: Current Medications Docusate Sodium (Colace) 100 mg PO BID [facility] Last Admin: 10/22/18 08:03 Dose: 100 mg Hydromorphone HCl (Dilaudid) 0.2 mg IVPUSH Q2H PRN PRN Reason: Pain (severe 7-10) Sodium Chloride (Normal Saline) 250 mls @ 50 mls/hr IV ASDIRECTED [facility] Last Admin: 10/22/18 09:53 Dose: 50 mls/hr Ibuprofen (Motrin) 600 mg PO Q6H PRN PRN Reason: Pain Last Admin: 10/22/18 09:53 Dose: 600 mg Ondansetron HCl (Zofran Odt) 4 mg PO Q6H PRN PRN Reason: Nausea/Vomiting Oxycodone/Acetaminophen (Percocet 325-5 Mg) 1 tab PO Q6H PRN PRN Reason: Pain (moderate 4-6) Last Admin: 10/22/18 08:01 Dose: 1 tab Oxycodone/Acetaminophen (Percocet 325-5 Mg) 2 tab PO Q6H PRN PRN Reason: Pain (severe 7-10) Last Admin: 10/22/18 14:30 Dose: 2 tab Discontinued Medications Bupivacaine HCl (Marcaine 0.5%) Confirm Administered Dose 30 ml .ROUTE .STK-MED ONE Stop: 10/21/18 18:58 Last Admin: 10/21/18 19:54 Dose: 5 ml Dexamethasone (Dexamethasone) Confirm Administered Dose 20 mg .ROUTE .STK-MED ONE Stop: 10/21/18 19:09 Diphenhydramine HCl (Benadryl) 25 mg IVPUSH Q6H PRN PRN Reason: pruritis Ephedrine Sulfate (Ephedrine Sulfate) 5 mg IVPUSH ASDIRECTED PRN PRN Reason: Hypotension Ephedrine Sulfate (Ephedrine In Ns) Confirm Administered Dose 25 mg .ROUTE .STK- MED ONE Stop: 10/21/18 20:01 Etomidate (Amidate) Confirm Administered Dose 40 mg IVPUSH .STK-MED ONE Stop: 10/21/18 19:09 Fentanyl (Sublimaze) Confirm Administered Dose 100 mcg .ROUTE .STK-MED ONE Stop: 10/21/18 19:09 Fentanyl (Sublimaze) 50 mcg IVPUSH Q5M PRN PRN Reason: Pain Fentanyl (Sublimaze) Confirm Administered Dose 100 mcg .ROUTE .STK-MED ONE Stop: 10/21/18 21:07 Glycopyrrolate () Confirm Administered Dose 1 mg .ROUTE .STK-MED ONE Stop: 10/21/18 20:00 Hydromorphone HCl (Dilaudid) 0.25 mg IVPUSH NOW STA Stop: 10/21/18 16:58 Last Admin: 10/21/18 17:00 Dose: 0.25 mg Hydromorphone HCl (Dilaudid) Confirm Administered Dose 0.5 mg .ROUTE .STK-MED ONE Stop: 10/21/18 19:09 Hydromorphone HCl (Dilaudid) 0.5 mg IVPUSH Q15M PRN PRN Reason: Pain (severe 7-10) Hydromorphone HCl (Dilaudid) Confirm Administered Dose 0.5 mg .ROUTE .STK-MED ONE Stop: 04/30/19 20:15 Sodium Chloride (Normal Saline) Confirm Administered Dose 1,000 mls @ as directed .ROUTE .STK-MED ONE Stop: 10/21/18 17:51 Last Admin: 10/21/18 18:03 Dose: Not Given Lactated Ringer's (Ringers, Lactated) 1,000 mls @ 999 mls/hr IV .BOLUS ONE Stop: 10/21/18 18:58 Last Admin: 10/21/18 17:59 Dose: 999 mls/hr Sodium Chloride (Normal Saline) 1,000 mls @ 999 mls/hr IV ONETIME ONE Stop: 10/21/18 19:00 Last Admin: 10/21/18 18:01 Dose: 999 mls/hr Lidocaine HCl (Xylocaine-Mpf 1%) Confirm Administered Dose 6 mls @ as directed .ROUTE .STK-MED ONE Stop: 10/21/18 19:09 Lactated Ringer's (Ringers, Lactated) Confirm Administered Dose 1,000 mls @ as directed .ROUTE .STK-MED ONE Stop: 10/21/18 19:09 Phenylephrine HCl 1 mg/ Sodium (Chloride) 10.1 mls @ 1 mls/sec IV TITRATE MARCK; Protocol Lactated Ringer's (Ringers, Lactated) Confirm Administered Dose 1,000 mls @ as directed .ROUTE .STK-MED ONE Stop: 10/21/18 19:57 Lactated Ringer's (Ringers, Lactated) Confirm Administered Dose 1,000 mls @ as directed .ROUTE .STK-MED ONE Stop: 10/21/18 21:44 Ketorolac Tromethamine (Toradol) Confirm Administered Dose 30 mg .ROUTE .STK- MED ONE Stop: 10/21/18 19:09 Ketorolac Tromethamine (Toradol) 30 mg IVPUSH Q6H MARCK Stop: 10/22/18 16:31 Last Admin: 10/22/18 04:26 Dose: 30 mg Midazolam HCl (Versed 1 Mg/Ml) Confirm Administered Dose 2 mg .ROUTE .STK-MED ONE Stop: 10/21/18 19:10 Neostigmine Methylsulfate (Neostigmine) Confirm Administered Dose 5 mg .ROUTE .STK-MED ONE Stop: 10/21/18 20:00 Ondansetron HCl (Zofran) Confirm Administered Dose 4 mg .ROUTE .STK-MED ONE Stop: 10/21/18 19:09 Ondansetron HCl (Zofran) 4 mg IVPUSH ONETIME PRN PRN Reason: Nausea/Vomiting Rocuronium [place] (Zemuron) Confirm Administered Dose 50 mg .ROUTE .STK-MED ONE Stop: 10/21/18 19:09 Scopolamine (Transderm-Scop) 1.5 mg TRDERM ONETIME ONE Stop: 10/21/18 19:51 Last Admin: 10/21/18 23:52 Dose: Not Given Succinylcholine Chloride (Succinylcholine In Ns Pf) Confirm Administered Dose 100 mg .ROUTE .STK-MED ONE Stop: 10/21/18 19:09
== END 2018-10-22 18:10 | disposition home or self-care (01) ==
LOC: JD.ED 16:24 → JD.SDS 18:38 → JD.MS 23:34 → JD.SDS 10-22 18:10
PROVIDERS: ATTEND Obstetrics & Gynecology
DX: O00.102 Left tubal pregnancy without intrauterine pregnancy (principal); K66.0 Peritoneal adhesions (postprocedural) (postinfection); N83.8 Other noninflammatory disorders of ovary, fallopian tube and broad ligament; D62 Acute posthemorrhagic anemia; Z79.899 Other long term (current) drug therapy
CPT/HCPCS: 00840; 36415; 36430; 84702; 85014; 85018; 85025; 86850; 86900; 86901; 86922; 96361; 96374; 99284-25; 99285; A9270-GY; J0330; J1100; J1170; J1885; J2001; J2250; J2405; J2710; J3010; J3490; J7040; J7050; J7120; P9016

== ENCOUNTER 2018-10-24 17:54 | Observation (INO) | payer OTHER ==
--- NOTE | 2018-10-24 19:22 | EDM.PDOC ---
ED HPI GENERAL MEDICAL PROBLEM - General Chief Complaint: SACK CLEANING HAND Problem Stated Complaint: VAGINAL BLEEDING Time Seen by Provider: 10/24/18 18:28 Source of Information: Reports: Patient, Family, Old Records, RN Notes Reviewed History Limitations: Reports: No Limitations - History of Present Illness INITIAL COMMENTS - FREE TEXT/NARRATIVE: Patient is a 28-year-old female who presents to the ED for the evaluation of lower abdominal pain and vaginal bleeding. The patient states that she had an ectopic that was dealt with on October 21. She states shortly after the procedure everything was going well, however today around 2 PM she began bleeding per her vagina. The patient states that the bleeding has worsened throughout the day, and she has soaked through almost 3 pads already. The patient states she feels dizzy, with hot flashes, and pain in her lower abdomen with also some general myalgias. The patient did take her oxycodone as prescribed, however this did not provide her much pain relief at all. The patient is noting that she is passing clots as well with this. Vaginal Pain Score (Numeric/FACES): 4 - Related Data Allergies Allergy/AdvReac Type Severity Reaction Status Date / Time No Known Allergies Allergy Verified 10/24/18 18:03 Home Meds: Home Meds Pnv No.95/Ferrous Fum/Folic AC [ Caplet] 1 each PO DAILY 10/20/18 [ History] Acetaminophen/oxyCODONE [Percocet 325-5 MG] 1 - 2 tab PO Q6H PRN #30 tablet 07/12 [Rx] Docusate Sodium [Colace] 100 mg PO BID cap 10/22/18 [Rx] Ibuprofen [Motrin] 600 mg PO Q6H PRN tablet 10/22/18 [Rx] Ondansetron [Zofran ODT] 4 mg PO Q4H PRN #30 tab.dis 10/22/18 [Rx] Ondansetron [Zofran ODT] 4 mg PO Q4H PRN #30 tab.dis 10/22/18 [Rx] oxyCODONE HCl/Acetaminophen [Percocet 5-325 mg Tablet] 1 - 2 each PO Q6H PRN # 30 tablet 10/22/18 [Rx] Past Medical History - Past Health History Medical/Surgical History: Denies Medical/Surgical History HEENT History: Reports: Impaired Vision Cardiovascular History: Reports: None Respiratory History: Reports: None Gastrointestinal History: Reports: None Genitourinary History: Reports: None SACK CLEANING HAND History: Reports: Polycystic Ovaries, Musculoskeletal History: Reports: None Neurological History: Reports: None Psychiatric History: Reports: None Endocrine/Metabolic History: Reports: None Hematologic History: Reports: None Immunologic History: Reports: None Oncologic (Cancer) History: Reports: None Dermatologic History: Reports: None - Infectious Disease History Infectious Disease History: Reports: None - Past Surgical History Head Surgeries/Procedures: Reports: None Oncologic Surgical History: Reports: None Social & Family History - Family History Family Medical History: Noncontributory - Tobacco Use Smoking Status *Q: Never Smoker - Caffeine Use Caffeine Use: Reports: Soda - Recreational Drug Use Recreational Drug Use: No ED ROS GENERAL - Review of Systems Review Of Systems: See Below Constitutional: Reports: Other (hot flashes) HEENT: Reports: No Symptoms Respiratory: Reports: Shortness of Breath Cardiovascular: Reports: No Symptoms Endocrine: Reports: No Symptoms GI/Abdominal: Reports: Abdominal Pain (lower abdominal pain) : Reports: Other (vaginal bleeding) Musculoskeletal: Reports: No Symptoms Skin: Reports: No Symptoms Neurological: Reports: Dizziness, Weakness. Denies: Syncope Psychiatric: Reports: No Symptoms Hematologic/Lymphatic: Reports: No Symptoms ED EXAM, RENAL/ - Physical Exam Exam: See Below Exam Limited By: No Limitations General Appearance: Alert, WD/WN, No Apparent Distress, Other (Generalized myalgias) Eye Exam: Bilateral Eye: EOMI, Normal Inspection, PERRL, Other (Pale conjunctiva ) Ears: Normal External Exam Nose: Normal Inspection Throat/Mouth: Normal Inspection, Normal Lips, Normal Teeth, Normal Gums, Normal Oropharynx (Palate oropharynx), Normal Voice, No Airway Compromise Head: Atraumatic, Normocephalic Respiratory/Chest: No Respiratory Distress, Lungs Clear, Normal Breath Sounds, No Accessory Muscle Use, Chest Non-Tender Cardiovascular: Normal Peripheral Pulses, Regular Rate, Rhythm, No Murmur GI/Abdominal: Normal Bowel Sounds, Soft, Non-Tender, No Distention, No Mass (Female) Exam: Deferred Extremities: Normal Inspection, Normal Capillary Refill Neurological: Alert, Oriented, No Motor/Sensory Deficits Psychiatric: Normal Affect, Normal Mood Skin Exam: Warm, Dry, Intact, No Rash, Pallor (Generalized) Course - Vital Signs Last Recorded V/S: Last Vital Signs Temp 98.4 F 10/24/18 18:00 Pulse 103 H 10/24/18 18:00 Resp 16 10/24/18 18:00 BP 106/74 10/24/18 18:00 Pulse Ox 100 10/24/18 18:00 - Orders/Labs/Meds Orders: Active Orders 24 hr Category Date Time Status Patient Status [ADT] Routine ADT 10/24/18 19:59 Active Communication Order [RC] STAT Care 10/24/18 19:15 Active Notify Provider Consults [RC] ASDIRECTED Care 10/24/18 19:13 Active Up ad Elisha [RC] PER UNIT ROUTINE Care 10/24/18 20:00 Active Vital Signs [RC] PER UNIT ROUTINE Care 10/24/18 19:59 Active Consult to Physician [CONS] Stat Cons 10/24/18 19:12 Active Regular Diet [DIET] Diet 10/24/18 Dinner Active CBC W/O DIFF,HEMOGRAM [HEME] AM Lab 10/25/18 05:11 Ordered RED BLOOD CELLS LP [BBK] Stat Lab 10/24/18 18:27 Received TYPE AND SCREEN [BBK] Stat Lab 10/24/18 18:27 Received Acetaminophen/HYDROcodone [[place] 325-5 MG] Med 10/24/18 19:59 Ordered 1 tab PO Q3H PRN Ibuprofen [Motrin] Med 10/24/18 19:59 Ordered 600 mg PO Q6H PRN Lactated Ringers [Ringers, Lactated] 1,000 ml Med 10/24/18 20:00 Ordered IV ASDIRECTED Ondansetron [Zofran] Med 10/24/18 19:59 Ordered 4 mg IVPUSH Q4H PRN Ice Therapy [OM.PC] Per Unit Routine Oth 10/24/18 20:00 Ordered Sitz Bath [OM.PC] Per Unit Routine Oth 10/24/18 20:00 Ordered Transfuse Red Blood Cells [COMM] Stat Oth 10/24/18 18:42 Ordered Resuscitation Status Routine Resus Stat 10/24/18 19:59 Ordered Medication Orders Hydrocodone Bitart/Acetaminophen ([place] 325-5 Mg) 1 tab PO Q3H PRN PRN Reason: Pain (moderate 4-6) Lactated Ringer's (Ringers, Lactated) 1,000 mls @ 75 mls/hr IV ASDIRECTED MARCK Ibuprofen (Motrin) 600 mg PO Q6H PRN PRN Reason: Pain (mild 1-3) Ondansetron HCl (Zofran) 4 mg IVPUSH Q4H PRN PRN Reason: Nausea/Vomiting Labs: Laboratory Tests 10/24/18 10/24/18 10/24/18 Range/Units 17:27 18:16 18:27 WBC 5.27 (3.98-10.04) K/mm3 RBC 2.76 L (3.98-5.22) M/mm3 Hgb 7.5 L (11.2-15.7) gm/L Hct 23.9 L (34.1-44.9) % MCV 86.6 (79.4-94.8) fl MCH 27.2 (25.6-32.2) pg MCHC 31.4 L (32.2-35.5) g/dl RDW Std Deviation 44.7 (36.4-46.3) fL Plt Count 183 (182-369) K/mm3 MPV 10.4 (9.4-12.3) fl Neut % (Auto) 64.9 (34.0-71.1) % Lymph % (Auto) 22.2 (19.3-51.7) % [place] % (Auto) 8.9 (4.7-12.5) % Eos % (Auto) 3.6 (0.7-5.8) Baso % (Auto) 0.2 (0.1-1.2) % Neut # (Auto) 3.42 (1.56-6.13) K/mm3 Lymph # (Auto) 1.17 L (1.18-3.74) K/mm3 [place] # (Auto) 0.47 H (0.24-0.36) K/mm3 Eos # (Auto) 0.19 (0.04-0.36) K/mm3 Baso # (Auto) 0.01 (0.01-0.08) K/mm3 Manual Slide Review Abnormal smear Sodium 140 (136-145) mEq/L Potassium 3.6 (3.5-5.1) mEq/L Chloride 105 (98-107) mEq/L Carbon Dioxide 29 (21-32) mEq/L Anion Gap 9.6 (5-15) BUN 5 L (7-18) mg/dL Creatinine 0.7 (0.55-1.02) mg/dL Est Cr Clr Drug Dosing 93.40 mL/min Estimated GFR (MDRD) > 60 (>60) mL/min BUN/Creatinine Ratio 7.1 L (14-18) Glucose 87 (74-106) mg/dL Calcium 8.2 L (8.5-10.1) mg/dL Total Bilirubin 0.7 (0.2-1.0) mg/dL AST 16 (15-37) U/L ALT 13 L (14-59) U/L Alkaline Phosphatase 39 L (46-116) U/L Total Protein 6.5 (6.4-8.2) g/dl Albumin 3.0 L (3.4-5.0) g/dl Globulin 3.5 gm/dL Albumin/Globulin Ratio 0.9 L (1-2) HCG, Quant 238.0 mIU/mL Blood Type Gel Antibody Screen Crossmatch 10/24/18 Range/Units 18:27 WBC (3.98-10.04) K/mm3 RBC (3.98-5.22) M/mm3 Hgb (11.2-15.7) gm/L Hct (34.1-44.9) % MCV (79.4-94.8) fl MCH (25.6-32.2) pg MCHC (32.2-35.5) g/dl RDW Std Deviation (36.4-46.3) fL Plt Count (182-369) K/mm3 MPV (9.4-12.3) fl Neut % (Auto) (34.0-71.1) % Lymph % (Auto) (19.3-51.7) % [place] % (Auto) (4.7-12.5) % Eos % (Auto) (0.7-5.8) Baso % (Auto) (0.1-1.2) % Neut # (Auto) (1.56-6.13) K/mm3 Lymph # (Auto) (1.18-3.74) K/mm3 [place] # (Auto) (0.24-0.36) K/mm3 Eos # (Auto) (0.04-0.36) K/mm3 Baso # (Auto) (0.01-0.08) K/mm3 Manual Slide Review Sodium (136-145) mEq/L Potassium (3.5-5.1) mEq/L Chloride (98-107) mEq/L Carbon Dioxide (21-32) mEq/L Anion Gap (5-15) BUN (7-18) mg/dL Creatinine (0.55-1.02) mg/dL Est Cr Clr Drug Dosing mL/min Estimated GFR (MDRD) (>60) mL/min BUN/Creatinine Ratio (14-18) Glucose (74-106) mg/dL Calcium (8.5-10.1) mg/dL Total Bilirubin (0.2-1.0) mg/dL AST (15-37) U/L ALT (14-59) U/L Alkaline Phosphatase (46-116) U/L Total Protein (6.4-8.2) g/dl Albumin (3.4-5.0) g/dl Globulin gm/dL Albumin/Globulin Ratio (1-2) HCG, Quant mIU/mL Blood Type B POSITIVE Gel Antibody Screen Negative Crossmatch See Detail Meds: Medications Generic Name Dose Route Start Last Admin Trade Name Freq PRN Reason Stop Dose Admin Hydrocodone Bitart/Acetaminophen 1 tab 10/24/18 19:59 [place] 325-5 Mg PO Q3H PRN Pain (moderate 4-6) Lactated Ringer's 1,000 mls @ 75 mls/hr 10/24/18 20:00 Ringers, Lactated IV ASDIRECTED MARCK Ibuprofen 600 mg 10/24/18 19:59 Motrin PO Q6H PRN Pain (mild 1-3) Ondansetron HCl 4 mg 10/24/18 19:59 Zofran IVPUSH Q4H PRN Nausea/Vomiting - Re-Assessments/Exams Free Text/Narrative Re-Assessment/Exam: 10/24/18 19:21 Patient presents to the ED for the evaluation of vaginal bleeding after a ectopic . A CBC and CMP were drawn by the triage nurse, and demonstrated a hemoglobin of 7.5 at today's visit. I did order a type and screen and an initial order to transfuse 2 units of blood, I was in contact with the SACK CLEANING HAND and call for possible D&C or misoprostol administration. Dr. Mobley is coming in to evaluate the patient and she asks that the transfusion wait until she finishes her evaluation. 10/24/18 20:07 Dr. Mobley was in to evaluate the patient and feel she needs observation for overnight. She will assume care of the patient at this time. Departure - Departure Time of Disposition: 20:08 Disposition: Admitted As Inpatient 65 Condition: Fair Clinical Impression: Vaginal bleeding Anemia Qualifiers: Anemia type: unspecified type Qualified Code(s): D64.9 - Anemia, unspecified - Discharge Information *PRESCRIPTION DRUG MONITORING PROGRAM REVIEWED*: No *COPY OF PRESCRIPTION DRUG MONITORING REPORT IN PATIENT LIDIA: No Referrals: Howard Matthew MD [Primary Care Provider] - Forms: ED Department Discharge - My Orders Last 24 Hours: My Active Orders 10/24/18 18:27 RED BLOOD CELLS LP [BBK] Stat TYPE AND SCREEN [BBK] Stat 10/24/18 18:42 Transfuse Red Blood Cells [COMM] Stat 10/24/18 19:12 Consult to Physician [CONS] Stat 10/24/18 19:13 Notify Provider Consults [RC] ASDIRECTED 10/24/18 19:15 Communication Order [RC] STAT - Assessment/Plan Last 24 Hours: My Active Orders 10/24/18 18:27 RED BLOOD CELLS LP [BBK] Stat TYPE AND SCREEN [BBK] Stat 10/24/18 18:42 Transfuse Red Blood Cells [COMM] Stat 10/24/18 19:12 Consult to Physician [CONS] Stat 10/24/18 19:13 Notify Provider Consults [RC] ASDIRECTED 10/24/18 19:15 Communication Order [RC] STAT
--- NOTE | 2018-10-24 19:32 | PCM.CONS ---
H&P History of Present Illness - General Date of Service: 10/24/18 Source of Information: Patient History Limitations: Reports: No Limitations - History of Present Illness Initial Comments - Free Text/Narative: Patient is a 28 y/o POD#3 from laparoscopic salpingectomy for an ectopic who presents to the ER with complaints of feeling lightheaded , vaginal bleeding, and slight abdominal pain. Patient first seen on 10/20 in the ER for bleeding in setting of . US done at that time which showed complicated cyst in abdomen and some fluid, but was felt to mostly represent a SAB. hCG done at that time was 2794. She was discharged to home. Represented on 10/21 with worsening pain and an hCG of 1333. Had her Hb drop from 10.8 to 7.6 and was taken to the OR where findings of a ruptured ectopic were seen. Salpingectomy performed. Post op her Hb did drop to 6.9 and was given 1 unit of PRBC and then improved to 7.5. She was felt stable for discharge on POD#1. Today reports was doing overall well until about noon. Began to feel lightheaded and warm. Had some spotting and then heavier vaginal bleeding. States that she is currently on her 3rd pad since noon (about 1900 currently). Feels weak. No n/v. Eating and drinking relatively well. Denies bowel or bladder concerns. Vaginal Pain Score (Numeric/FACES): 4 - Related Data Allergies/Adverse Reactions: Allergies Allergy/AdvReac Type Severity Reaction Status Date / Time No Known Allergies Allergy Verified 10/24/18 18:03 Home Medications: Home Meds Pnv No.95/Ferrous Fum/Folic AC [ Caplet] 1 each PO DAILY 10/20/18 [ History] Acetaminophen/oxyCODONE [Percocet 325-5 MG] 1 - 2 tab PO Q6H PRN #30 tablet 07/12 [Rx] Docusate Sodium [Colace] 100 mg PO BID cap 10/22/18 [Rx] Ibuprofen [Motrin] 600 mg PO Q6H PRN tablet 10/22/18 [Rx] Ondansetron [Zofran ODT] 4 mg PO Q4H PRN #30 tab.dis 10/22/18 [Rx] Ondansetron [Zofran ODT] 4 mg PO Q4H PRN #30 tab.dis 10/22/18 [Rx] oxyCODONE HCl/Acetaminophen [Percocet 5-325 mg Tablet] 1 - 2 each PO Q6H PRN # 30 tablet 10/22/18 [Rx] Past Medical History HEENT History: Reports: Impaired Vision BLIND HANGER History: Reports: Ectopic , : 2 Para: 1 - Past Surgical History GI Surgical History: Reports: Appendectomy (vertical midline incision) Female Surgical History: Reports: Other (See Below) (salpingectomy for ectopic) Oncologic Surgical History: Reports: None Social & Family History - Family History Family Medical History: Noncontributory - Tobacco Use Smoking Status *Q: Never Smoker - Caffeine Use Caffeine Use: Reports: Soda - Alcohol Use Alcohol Use History: No - Recreational Drug Use Recreational Drug Use: No H&P Review of Systems - Review of Systems: Review Of Systems: See Below General: Reports: Fatigue Pulmonary: Reports: No Symptoms Cardiovascular: Reports: Lightheadedness Gastrointestinal: Reports: No Symptoms Genitourinary: Reports: Other (bleeding) Musculoskeletal: Reports: No Symptoms Psychiatric: Reports: No Symptoms Neurological: Reports: No Symptoms Exam - Exam Exam: See Below - Vital Signs Vital Signs: Last Vital Signs Temp 36.9 C 10/24/18 18:00 Pulse 103 H 10/24/18 18:00 Resp 16 10/24/18 18:00 BP 106/74 10/24/18 18:00 Pulse Ox 100 10/24/18 18:00 Weight: 49.895 kg - Exam General: Alert, Oriented, Cooperative Lungs: Clear to Auscultation, Normal Respiratory Effort Cardiovascular: Regular Rhythm, Tachycardia GI/Abdominal Exam: Soft, Tender (appropriate post op), Other (incisions are clean, dry, intact). No: Guarding, Rebound (Female) Exam: Normal Speculum Exam (small/moderate amount of blood noted in vagina. Cervix appears closed ), Other (Extensive deep purple brusing present from the mons down both labia and into the left thigh/groin) Back Exam: Normal Inspection Extremities: Normal Inspection - Patient Data Lab Results Last 24 hrs: Laboratory Results - last 24 hr 10/24/18 10/24/18 Range/Units 17:27 18:27 WBC 5.27 (3.98-10.04) K/mm3 RBC 2.76 L (3.98-5.22) M/mm3 Hgb 7.5 L (11.2-15.7) gm/L Hct 23.9 L (34.1-44.9) % MCV 86.6 (79.4-94.8) fl MCH 27.2 (25.6-32.2) pg MCHC 31.4 L (32.2-35.5) g/dl RDW Std Deviation 44.7 (36.4-46.3) fL Plt Count 183 (182-369) K/mm3 MPV 10.4 (9.4-12.3) fl Neut % (Auto) 64.9 (34.0-71.1) % Lymph % (Auto) 22.2 (19.3-51.7) % [place] % (Auto) 8.9 (4.7-12.5) % Eos % (Auto) 3.6 (0.7-5.8) Baso % (Auto) 0.2 (0.1-1.2) % Neut # (Auto) 3.42 (1.56-6.13) K/mm3 Lymph # (Auto) 1.17 L (1.18-3.74) K/mm3 [place] # (Auto) 0.47 H (0.24-0.36) K/mm3 Eos # (Auto) 0.19 (0.04-0.36) K/mm3 Baso # (Auto) 0.01 (0.01-0.08) K/mm3 Manual Slide Review Abnormal smear Sodium 140 (136-145) mEq/L Potassium 3.6 (3.5-5.1) mEq/L Chloride 105 (98-107) mEq/L Carbon Dioxide 29 (21-32) mEq/L Anion Gap 9.6 (5-15) BUN 5 L (7-18) mg/dL Creatinine 0.7 (0.55-1.02) mg/dL Est Cr Clr Drug Dosing 93.40 mL/min Estimated GFR (MDRD) > 60 (>60) mL/min BUN/Creatinine Ratio 7.1 L (14-18) Glucose 87 (74-106) mg/dL Calcium 8.2 L (8.5-10.1) mg/dL Total Bilirubin 0.7 (0.2-1.0) mg/dL AST 16 (15-37) U/L ALT 13 L (14-59) U/L Alkaline Phosphatase 39 L (46-116) U/L Total Protein 6.5 (6.4-8.2) g/dl Albumin 3.0 L (3.4-5.0) g/dl Globulin 3.5 gm/dL Albumin/Globulin Ratio 0.9 L (1-2) Result Diagrams: 10/24/18 17:27 10/24/18 18:27 Consult PN Assessment/Plan (1) S/P ectopic SNOMED Code(s): 640357173, 882080292 Code(s): Z87.59 - PERSONAL HISTORY OF COMP OF PREG, CHLDBRTH AND THE PUERP Current Visit: Yes Problem List Initiated/Reviewed/Updated: Yes My Orders Last 24 Hours: My Active Orders 10/24/18 19:26 HCG QUANTITATIVE [CHEM] Stat Plan: Patient Hb is 7.5 today which is same from 10/22 on day of discharge. Low suspicion for on-going intraabdominal bleeding. Patient does, however, feel symptomatic and so will transfuse 1 unit of PRBC and then reassess (ER had previously ordered 2 units, will ask them to hold one). Would also like to admit patient for observation to ensure feels improved and that hematoma does not continue to expand. Patient and her have questions about D&C. Reviewed that would expect some vaginal bleeding after ectopic surgery as thickened uterine lining will begin to shed now that resolving. hCG today down to 238. They express understanding of this discussion. Will monitor vaginal bleeding as well.
[2018-10-24] MEDS ORDERED: Acetaminophen/HYDROcodone 325-5 MG Tab PO PRN (19:59)
[2018-10-24] MEDS ORDERED: Ibuprofen 600 MG Tab PO PRN (19:59)
[2018-10-24] MEDS ORDERED: Ondansetron 4 MG/2 ML SDV IVPUSH PRN (19:59)
[2018-10-24] MEDS ORDERED: Lactated Ringers 1,000 ML IV SCH (20:00)
[2018-10-24] MEDS ORDERED: Sodium Chloride 0.9% 250 ML IV SCH (21:15)
--- NOTE | 2018-10-24 22:51 | PCM.SN ---
- Free Text/Narrative Note: 2229 Doing well. Blood is hanging. Reports bleeding has slowed a lot. No other concerns. Will reassess in the AM Oriana Mobley MD
--- NOTE | 2018-10-25 10:12 | PCM.PN ---
- General Info Date of Service: 10/25/18 Functional Status: Reports: Pain Controlled, Tolerating Diet, Ambulating, Urinating - Review of Systems General: Reports: No Symptoms Pulmonary: Reports: No Symptoms Cardiovascular: Reports: No Symptoms Gastrointestinal: Reports: No Symptoms Genitourinary: Reports: Other (bleeding is lightening ) Musculoskeletal: Reports: No Symptoms Neurological: Reports: No Symptoms - Patient Data Vitals - Most Recent: Last Vital Signs Temp 37.2 C 10/25/18 08:51 Pulse 80 10/25/18 08:51 Resp 16 10/25/18 08:51 BP 134/89 10/25/18 08:51 Pulse Ox 100 10/25/18 08:51 Weight - Most Recent: 53.615 kg I&O - Last 24 Hours: Intake & Output 10/24/18 10/25/18 10/25/18 22:59 06:59 14:59 Intake Total 0 400 Output Total 400 Balance 0 0 Lab Results Last 24 Hours: Laboratory Results - last 24 hr 10/24/18 10/24/18 10/24/18 Range/Units 17:27 18:16 18:27 WBC 5.27 (3.98-10.04) K/mm3 RBC 2.76 L (3.98-5.22) M/mm3 Hgb 7.5 L (11.2-15.7) gm/L Hct 23.9 L (34.1-44.9) % MCV 86.6 (79.4-94.8) fl MCH 27.2 (25.6-32.2) pg MCHC 31.4 L (32.2-35.5) g/dl RDW Std Deviation 44.7 (36.4-46.3) fL Plt Count 183 (182-369) K/mm3 MPV 10.4 (9.4-12.3) fl Neut % (Auto) 64.9 (34.0-71.1) % Lymph % (Auto) 22.2 (19.3-51.7) % [place] % (Auto) 8.9 (4.7-12.5) % Eos % (Auto) 3.6 (0.7-5.8) Baso % (Auto) 0.2 (0.1-1.2) % Neut # (Auto) 3.42 (1.56-6.13) K/mm3 Lymph # (Auto) 1.17 L (1.18-3.74) K/mm3 [place] # (Auto) 0.47 H (0.24-0.36) K/mm3 Eos # (Auto) 0.19 (0.04-0.36) K/mm3 Baso # (Auto) 0.01 (0.01-0.08) K/mm3 Manual Slide Review Abnormal smear Sodium 140 (136-145) mEq/L Potassium 3.6 (3.5-5.1) mEq/L Chloride 105 (98-107) mEq/L Carbon Dioxide 29 (21-32) mEq/L Anion Gap 9.6 (5-15) BUN 5 L (7-18) mg/dL Creatinine 0.7 (0.55-1.02) mg/dL Est Cr Clr Drug Dosing 93.40 mL/min Estimated GFR (MDRD) > 60 (>60) mL/min BUN/Creatinine Ratio 7.1 L (14-18) Glucose 87 (74-106) mg/dL Calcium 8.2 L (8.5-10.1) mg/dL Total Bilirubin 0.7 (0.2-1.0) mg/dL AST 16 (15-37) U/L ALT 13 L (14-59) U/L Alkaline Phosphatase 39 L (46-116) U/L Total Protein 6.5 (6.4-8.2) g/dl Albumin 3.0 L (3.4-5.0) g/dl Globulin 3.5 gm/dL Albumin/Globulin Ratio 0.9 L (1-2) HCG, Quant 238.0 mIU/mL Blood Type Gel Antibody Screen Crossmatch 10/24/18 10/25/18 Range/Units 18:27 05:36 WBC 4.97 (3.98-10.04) K/mm3 RBC 3.01 L (3.98-5.22) M/mm3 Hgb 8.4 L (11.2-15.7) gm/L Hct 25.7 L (34.1-44.9) % MCV 85.4 (79.4-94.8) fl MCH 27.9 (25.6-32.2) pg MCHC 32.7 (32.2-35.5) g/dl RDW Std Deviation 43.2 (36.4-46.3) fL Plt Count 175 L (182-369) K/mm3 MPV 11.1 (9.4-12.3) fl Neut % (Auto) (34.0-71.1) % Lymph % (Auto) (19.3-51.7) % [place] % (Auto) (4.7-12.5) % Eos % (Auto) (0.7-5.8) Baso % (Auto) (0.1-1.2) % Neut # (Auto) (1.56-6.13) K/mm3 Lymph # (Auto) (1.18-3.74) K/mm3 [place] # (Auto) (0.24-0.36) K/mm3 Eos # (Auto) (0.04-0.36) K/mm3 Baso # (Auto) (0.01-0.08) K/mm3 Manual Slide Review Sodium (136-145) mEq/L Potassium (3.5-5.1) mEq/L Chloride (98-107) mEq/L Carbon Dioxide (21-32) mEq/L Anion Gap (5-15) BUN (7-18) mg/dL Creatinine (0.55-1.02) mg/dL Est Cr Clr Drug Dosing mL/min Estimated GFR (MDRD) (>60) mL/min BUN/Creatinine Ratio (14-18) Glucose (74-106) mg/dL Calcium (8.5-10.1) mg/dL Total Bilirubin (0.2-1.0) mg/dL AST (15-37) U/L ALT (14-59) U/L Alkaline Phosphatase (46-116) U/L Total Protein (6.4-8.2) g/dl Albumin (3.4-5.0) g/dl Globulin gm/dL Albumin/Globulin Ratio (1-2) HCG, Quant mIU/mL Blood Type B POSITIVE Gel Antibody Screen Negative Crossmatch See Detail Med Orders - Current: Current Medications Hydrocodone Bitart/Acetaminophen ([place] 325-5 Mg) 1 tab PO Q3H PRN PRN Reason: Pain (moderate 4-6) Last Admin: 10/25/18 09:02 Dose: 1 tab Ibuprofen (Motrin) 600 mg PO Q6H PRN PRN Reason: Pain (mild 1-3) Last Admin: 10/24/18 21:38 Dose: 600 mg Ondansetron HCl (Zofran) 4 mg IVPUSH Q4H PRN PRN Reason: Nausea/Vomiting Discontinued Medications Lactated Ringer's (Ringers, Lactated) 1,000 mls @ 75 mls/hr IV ASDIRECTED [facility] Last Admin: 10/24/18 21:30 Dose: 75 mls/hr Sodium Chloride (Normal Saline) 250 mls @ 25 mls/hr IV ASDIRECTED [facility] Last Admin: 10/24/18 21:50 Dose: 25 mls/hr - Exam General: Alert, Oriented, Cooperative GI/Abdominal Exam: Soft, Non-Tender (Female) Exam: Vaginal Bleeding (scant on pad ), Other (hematoma over the mons/labia are stable) Extremities: Normal Inspection - Problem List & Annotations (1) S/P ectopic SNOMED Code(s): 286947664, 323235762 Code(s): Z87.59 - PERSONAL HISTORY OF COMP OF PREG, CHLDBRTH AND THE PUERP Status: Acute Current Visit: Yes - Problem List Review Problem List Initiated/Reviewed/Updated: Yes - My Orders Last 24 Hours: My Active Orders 10/24/18 18:44 Transfuse PRBC [Transfuse Red Blood Cells] [COMM] Routine 10/24/18 19:59 Patient Status [ADT] Routine Acetaminophen/HYDROcodone [[place] 325-5 MG] 1 tab PO Q3H PRN Ibuprofen [Motrin] 600 mg PO Q6H PRN Ondansetron [Zofran] 4 mg IVPUSH Q4H PRN Resuscitation Status Routine 10/24/18 20:00 Up ad Elisha [RC] PER UNIT ROUTINE Ice Therapy [OM.PC] Per Unit Routine Sitz Bath [OM.PC] Per Unit Routine 10/24/18 Dinner Regular Diet [DIET] - Assessment Assessment:: HD#2 - doing well. - Plan Plan:: * Vaginal bleeding scant overnight. * Hb improved to 8.4 from 7.5 on admission after 1 unit of PRBC. Will have patient get up and do a longer walk to see how tolerates this activity * Tentatively plan on discharge this AM
--- NOTE | 2018-10-25 10:14 | PCM.DCSUM1 ---
Discharge Summary - Discharge Data Discharge Date: 10/25/18 Discharge Disposition: Home, Self-Care 01 Condition: Good - Discharge Diagnosis/Problem(s) (1) S/P ectopic SNOMED Code(s): 557598623, [id number] ICD Code: Z87.59 - PERSONAL HISTORY OF COMP OF PREG, CHLDBRTH AND THE PUERP Status: Acute - Patient Summary/Data Complications: None Consults: Consultations 10/24/18 19:12 Consult to Physician [CONS] Stat Recommended Follow-up Testing/Procedures: Follow up with Dr. Matthew as scheduled Hospital Course: 28 y/o admitted on POD#3 after a laparoscopic salpingectomy done for ectopic for concerns of dizziness, lightheadedness, and vaginal bleeding. Hb was done in ER and noted to be the same from day of discharge after surgery, 7.5 , however given symptomatic 1 unit of PRBC transfused. Tahira also noted to have a mons/vulvar hematoma. She was admitted for observation while transfusion arranged and to watch this hematoma. She did well and was discharged home on HD#2. - Patient Instructions Diet: Regular Diet as Tolerated Activity: No Lifting Over 10 Pounds Activity, Other: Pelvic rest Driving: Do Not Drive (While taking narcotics ) Showering/Bathing: May Shower, No Tub Bathing/Swimming Wound/Incision Care: Keep Operative Site/Wound Site Clean and Dry Notify Provider of: Fever, Increased Pain, Swelling and Redness, Drainage, Nausea and/or Vomiting - Discharge Plan *PRESCRIPTION DRUG MONITORING PROGRAM REVIEWED*: No *COPY OF PRESCRIPTION DRUG MONITORING REPORT IN PATIENT LIDIA: No Home Medications: Home Meds Ibuprofen [Motrin] 600 mg PO Q6H PRN tablet 10/22/18 [Rx] oxyCODONE HCl/Acetaminophen [Percocet 5-325 mg Tablet] 1 - 2 each PO Q6H PRN # 30 tablet 10/22/18 [Rx] Patient Handouts: Preventing Iron Deficiency Anemia, Adult Referrals: Howard Matthew MD [Primary Care Provider] - (Follow up as scheduled on 11/03) - Discharge Summary/Plan Comment DC Time >30 min.: No - Patient Data Vitals - Most Recent: Last Vital Signs Temp 37.2 C 10/25/18 08:51 Pulse 80 10/25/18 08:51 Resp 16 10/25/18 08:51 BP 134/89 10/25/18 08:51 Pulse Ox 100 10/25/18 08:51 Weight - Most Recent: 53.615 kg I&O - Last 24 hours: Intake & Output 10/24/18 10/25/18 10/25/18 22:59 06:59 14:59 Intake Total 0 400 Output Total 400 Balance 0 0 Lab Results - Last 24 hrs: Laboratory Results - last 24 hr 10/24/18 10/24/18 10/24/18 Range/Units 17:27 18:16 18:27 WBC 5.27 (3.98-10.04) K/mm3 RBC 2.76 L (3.98-5.22) M/mm3 Hgb 7.5 L (11.2-15.7) gm/L Hct 23.9 L (34.1-44.9) % MCV 86.6 (79.4-94.8) fl MCH 27.2 (25.6-32.2) pg MCHC 31.4 L (32.2-35.5) g/dl RDW Std Deviation 44.7 (36.4-46.3) fL Plt Count 183 (182-369) K/mm3 MPV 10.4 (9.4-12.3) fl Neut % (Auto) 64.9 (34.0-71.1) % Lymph % (Auto) 22.2 (19.3-51.7) % [place] % (Auto) 8.9 (4.7-12.5) % Eos % (Auto) 3.6 (0.7-5.8) Baso % (Auto) 0.2 (0.1-1.2) % Neut # (Auto) 3.42 (1.56-6.13) K/mm3 Lymph # (Auto) 1.17 L (1.18-3.74) K/mm3 [place] # (Auto) 0.47 H (0.24-0.36) K/mm3 Eos # (Auto) 0.19 (0.04-0.36) K/mm3 Baso # (Auto) 0.01 (0.01-0.08) K/mm3 Manual Slide Review Abnormal smear Sodium 140 (136-145) mEq/L Potassium 3.6 (3.5-5.1) mEq/L Chloride 105 (98-107) mEq/L Carbon Dioxide 29 (21-32) mEq/L Anion Gap 9.6 (5-15) BUN 5 L (7-18) mg/dL Creatinine 0.7 (0.55-1.02) mg/dL Est Cr Clr Drug Dosing 93.40 mL/min Estimated GFR (MDRD) > 60 (>60) mL/min BUN/Creatinine Ratio 7.1 L (14-18) Glucose 87 (74-106) mg/dL Calcium 8.2 L (8.5-10.1) mg/dL Total Bilirubin 0.7 (0.2-1.0) mg/dL AST 16 (15-37) U/L ALT 13 L (14-59) U/L Alkaline Phosphatase 39 L (46-116) U/L Total Protein 6.5 (6.4-8.2) g/dl Albumin 3.0 L (3.4-5.0) g/dl Globulin 3.5 gm/dL Albumin/Globulin Ratio 0.9 L (1-2) HCG, Quant 238.0 mIU/mL Blood Type Gel Antibody Screen Crossmatch 10/24/18 10/25/18 Range/Units 18:27 05:36 WBC 4.97 (3.98-10.04) K/mm3 RBC 3.01 L (3.98-5.22) M/mm3 Hgb 8.4 L (11.2-15.7) gm/L Hct 25.7 L (34.1-44.9) % MCV 85.4 (79.4-94.8) fl MCH 27.9 (25.6-32.2) pg MCHC 32.7 (32.2-35.5) g/dl RDW Std Deviation 43.2 (36.4-46.3) fL Plt Count 175 L (182-369) K/mm3 MPV 11.1 (9.4-12.3) fl Neut % (Auto) (34.0-71.1) % Lymph % (Auto) (19.3-51.7) % [place] % (Auto) (4.7-12.5) % Eos % (Auto) (0.7-5.8) Baso % (Auto) (0.1-1.2) % Neut # (Auto) (1.56-6.13) K/mm3 Lymph # (Auto) (1.18-3.74) K/mm3 [place] # (Auto) (0.24-0.36) K/mm3 Eos # (Auto) (0.04-0.36) K/mm3 Baso # (Auto) (0.01-0.08) K/mm3 Manual Slide Review Sodium (136-145) mEq/L Potassium (3.5-5.1) mEq/L Chloride (98-107) mEq/L Carbon Dioxide (21-32) mEq/L Anion Gap (5-15) BUN (7-18) mg/dL Creatinine (0.55-1.02) mg/dL Est Cr Clr Drug Dosing mL/min Estimated GFR (MDRD) (>60) mL/min BUN/Creatinine Ratio (14-18) Glucose (74-106) mg/dL Calcium (8.5-10.1) mg/dL Total Bilirubin (0.2-1.0) mg/dL AST (15-37) U/L ALT (14-59) U/L Alkaline Phosphatase (46-116) U/L Total Protein (6.4-8.2) g/dl Albumin (3.4-5.0) g/dl Globulin gm/dL Albumin/Globulin Ratio (1-2) HCG, Quant mIU/mL Blood Type B POSITIVE Gel Antibody Screen Negative Crossmatch See Detail Med Orders - Current: Current Medications Hydrocodone Bitart/Acetaminophen ([place] 325-5 Mg) 1 tab PO Q3H PRN PRN Reason: Pain (moderate 4-6) Last Admin: 10/25/18 09:02 Dose: 1 tab Ibuprofen (Motrin) 600 mg PO Q6H PRN PRN Reason: Pain (mild 1-3) Last Admin: 10/24/18 21:38 Dose: 600 mg Ondansetron HCl (Zofran) 4 mg IVPUSH Q4H PRN PRN Reason: Nausea/Vomiting Discontinued Medications Lactated Ringer's (Ringers, Lactated) 1,000 mls @ 75 mls/hr IV ASDIRECTED [facility] Last Admin: 10/24/18 21:30 Dose: 75 mls/hr Sodium Chloride (Normal Saline) 250 mls @ 25 mls/hr IV ASDIRECTED [facility] Last Admin: 10/24/18 21:50 Dose: 25 mls/hr
== END 2018-10-25 11:57 | disposition home or self-care (01) ==
LOC: JD.ED 17:54 → JD.MS 20:17
PROVIDERS: ADMIT Obstetrics & Gynecology; ATTEND Obstetrics & Gynecology
DX: Z87.59 Personal history of other complications of pregnancy, childbirth and the puerperium (principal); N93.9 Abnormal uterine and vaginal bleeding, unspecified
CPT/HCPCS: 36415; 36430; 80053; 84702; 85025; 85027; 86850; 86900; 86901; 86922; 96360; 96361; 99285; A9270; G0378; J7050; J7120; P9016

== ENCOUNTER 2019-11-08 15:54 | Inpatient (IN) | payer BC, OTHER ==
[2019-11-09] MEDS ORDERED: Bupivacaine 0.25% 10 ML SDV ONE
[2019-11-09] MEDS ORDERED: Sodium Chloride 0.9% 10 ML Syringe FLUSH PRN (03:22)
[2019-11-09] MEDS ORDERED: Nalbuphine 10 MG/ML Syringe IVPUSH PRN (03:22)
[2019-11-09] MEDS ORDERED: Oxytocin/Lactated Ringers 10 UNIT/1,000 ML BAG IV SCH ×2 (03:30)
[2019-11-09] MEDS: Lactated Ringers 1,000 ML IV SCH ×3 (06:33→10:16)
--- NOTE | 2019-11-09 07:23 | PCM.LDHP ---
L&D History of Present Illness - General Date of Service: 11/09/19 Admit Problem/Dx: Patient Status Order with Admit Dx/Problem 11/08/19 23:51 Patient Status [ADT] Routine 11/09/19 01:05 Patient Status [ADT] Routine Admission Diagnosis/Problem Admission Diagnosis/Problem Source of Information: Patient History Limitations: Reports: No Limitations - History of Present Illness Introduction:: Assumed care of this patient at 0630 this morning. Previously under the care of Dr. Rojas Patient is a 29-year-old at 39-1/7 weeks currently who presented right before midnight with spontaneous rupture of membranes. Has been zeeshan mildly overnight. Was just started on Pitocin for augmentation about an hour or so ago. Otherwise feeling well and without concerns or complaints - Related Data Allergies/Adverse Reactions: Allergies Allergy/AdvReac Type Severity Reaction Status Date / Time No Known Allergies Allergy Verified 10/25/18 02:24 Home Medications: Home Meds Prenat 115/Iron Fum/Folic/Dss [ 19 Tablet] 1 each PO 11/09/19 [History] Past Medical History HEENT History: Reports: Impaired Vision Other HEENT History: wears glasses [employer] AUTHOR History: Reports: Ectopic , : 3 Para: 1 LMP (Approximate): Hematologic History: Reports: Blood Transfusion(s) - Past Surgical History HEENT Surgical History: Reports: Oral Surgery Other HEENT Surgeries/Procedures: wisdom teeth extracted GI Surgical History: Reports: Appendectomy Female Surgical History: Reports: Other (See Below) (left salpingectomy for ectopic ) Endocrine Surgical History: Reports: None Neurological Surgical History: Reports: None Musculoskeletal Surgical History: Reports: None Oncologic Surgical History: Reports: None Dermatological Surgical History: Reports: None Social & Family History - Family History Family Medical History: Noncontributory - Tobacco Use Smoking Status *Q: Never Smoker Second Hand Smoke Exposure: No - Caffeine Use Caffeine Use: Reports: None - Alcohol Use Alcohol Use History: No - Recreational Drug Use Recreational Drug Use: No H&P Review of Systems - Review of Systems: Review Of Systems: See Below General: Reports: No Symptoms Pulmonary: Reports: No Symptoms Cardiovascular: Reports: No Symptoms Gastrointestinal: Reports: Abdominal Pain Genitourinary: Reports: No Symptoms Musculoskeletal: Reports: No Symptoms Psychiatric: Reports: No Symptoms Neurological: Reports: No Symptoms L&D Exam - Exam Exam: See Below - Vital Signs Vital Signs: Last Vital Signs Temp 36.8 C 11/08/19 23:51 Pulse 82 11/08/19 23:51 Resp 14 11/08/19 23:51 BP 112/74 11/08/19 23:51 Pulse Ox 100 11/08/19 23:51 Weight: 69.4 kg - OB Specific Contraction Intensity: Mild to Moderate Movement: Active Heart Tones: Present Heart Tones per Min: 120 Heart Rate (FHR) Variability: Moderate (6-25 bmp) Presentation: Vertex - Romero Score Romero Score Cervix Position: Midposition Romero Score Consistency: Soft Romero Score Effacement: >80% Romero Score Dilation: 3-4 cm Romero Score Infant's Station: -2 Romero Score Total: 9 - Exam General: Alert, Oriented, Cooperative Lungs: Clear to Auscultation, Normal Respiratory Effort Cardiovascular: Regular Rate, Regular Rhythm GI/Abdominal Exam: Soft, Non-Tender Genitourinary: Normal external exam Extremities: Normal Inspection Skin: Warm, Dry, Intact - Patient Data Lab Results Last 24 hrs: Laboratory Results - last 24 hr 11/09/19 11/09/19 Range/Units 00:12 04:04 WBC 8.44 (3.98-10.04) K/mm3 RBC 4.15 (3.98-5.22) M/mm3 Hgb 10.4 L D (11.2-15.7) gm/dl Hct 32.6 L (34.1-44.9) % MCV 78.6 L D (79.4-94.8) fl MCH 25.1 L (25.6-32.2) pg MCHC 31.9 L (32.2-35.5) g/dl RDW Std Deviation 40.5 (36.4-46.3) fL Plt Count 210 (182-369) K/mm3 MPV 10.7 (9.4-12.3) fl Neut % (Auto) 75.0 H (34.0-71.1) % Lymph % (Auto) 16.4 L (19.3-51.7) % [place] % (Auto) 5.7 (4.7-12.5) % Eos % (Auto) 1.9 (0.7-5.8) Baso % (Auto) 0.4 (0.1-1.2) % Neut # (Auto) 6.34 H (1.56-6.13) K/mm3 Lymph # (Auto) 1.38 (1.18-3.74) K/mm3 [place] # (Auto) 0.48 H (0.24-0.36) K/mm3 Eos # (Auto) 0.16 (0.04-0.36) K/mm3 Baso # (Auto) 0.03 (0.01-0.08) K/mm3 Membrane Rupture Positive H Result Diagrams: 11/09/19 04:04 - Problem List (1) 39 weeks gestation of SNOMED Code(s): 80532213 ICD Code: Z3A.39 - 39 WEEKS GESTATION OF Status: Acute Current Visit: Yes (2) Premature rupture of membranes SNOMED Code(s): 04704620 ICD Code: O42.90 - SAMY ROM, 7TH0 BETW RUPT & ONST LABR, UNSP WEEKS OF GEST Status: Acute Current Visit: Yes Qualifiers: PROM onset of labor timing: unspecified duration between rupture of membranes and onset of labor PROM gestational age: full term Qualified Code( s): O42.92 - Full-term premature rupture of membranes, unspecified as to length of time between rupture and onset of labor Problem List Initiated/Reviewed/Updated: Yes Orders Last 24hrs: Active Orders 24 hr Category Date Time Status Patient Status [ADT] Routine ADT 11/09/19 01:05 Active Activity as Tolerated [RC] PFP Care 11/09/19 01:05 Active Communication Order [RC] ASDIRECTED Care 11/09/19 03:22 Active Heart Tones [RC] ASDIRECTED Care 11/09/19 03:23 Active Notify Provider [RC] PFP Care 11/09/19 01:05 Active Notify Provider [RC] PRN Care 11/09/19 03:22 Active Peripheral IV Care [RC] Q2H Care 11/09/19 03:23 Active Urinary Catheter Assessment [RC] ASDIRECTED Care 11/09/19 03:22 Active Vital Signs [RC] PER UNIT ROUTINE Care 11/09/19 03:22 Active Regular Diet [DIET] Diet 11/09/19 Breakfast Active RAPID PLASMA REAGIN,RPR [CHEM] Routine Lab 11/09/19 04:04 Received Lactated Ringers [Ringers, Lactated] 1,000 ml Med 11/09/19 03:30 Active IV ASDIRECTED Nalbuphine [Nubain] Med 11/09/19 03:22 Active 10 mg IVPUSH Q2H PRN Oxytocin/Lactated Ringers [Pitocin in LR 10 Units/1,000 Med 11/09/19 03:30 Active ML] 10 unit in 1,000 ml IV .CONTINUOUS Oxytocin/Lactated Ringers [Pitocin in LR 10 Units/1,000 Med 11/09/19 03:30 Active ML] 10 unit in 1,000 ml IV TITRATE Sodium Chloride 0.9% [Saline Flush] Med 11/09/19 03:22 Active 10 ml FLUSH ASDIRECTED PRN Electronic Heart Tones Ext w TOCO [WOMSER] Oth 11/09/19 01:05 Ordered Routine Electronic Heart Tones Internal [WOMSER] Per Unit Oth 11/09/19 03:22 Ordered Routine Peripheral IV Insertion Adult [OM.PC] Routine Oth 11/09/19 01:05 Ordered Resuscitation Status Routine Resus Stat 11/08/19 23:51 Ordered Medication Orders Lactated Ringer's (Ringers, Lactated) 1,000 mls @ 100 mls/hr IV ASDIRECTED [facility] Last Admin: 11/09/19 06:33 Dose: 100 mls/hr Oxytocin/Lactated Ringer's (Pitocin In Lr 10 Units/1,000 Ml) 10 unit in 1,000 mls @ 500 mls/hr IV .CONTINUOUS [facility] Oxytocin/Lactated Ringer's (Pitocin In Lr 10 Units/1,000 Ml) 10 unit in 1,000 mls @ 12 mls/hr IV TITRATE [facility]; Protocol Last Admin: 11/09/19 06:40 Dose: 2 munits/min, 12 mls/hr Nalbuphine HCl (Nubain) 10 mg IVPUSH Q2H PRN PRN Reason: Pain Sodium Chloride (Saline Flush) 10 ml FLUSH ASDIRECTED PRN PRN Reason: Keep Vein Open Assessment/Plan Comment:: * Labs previously done * GBS negative, no need for antibiotics * Pitocin augmentation initiated. Continue per protocol * Pain management per patient preference * Anticipate vaginal delivery
[2019-11-09] MEDS ORDERED: ePHEDrine 50 MG/ML SDV IVPUSH PRN (09:51)
[2019-11-09] MEDS ORDERED: Bupivacaine/fentaNYL/NS 100 ML Bag EPIDUR PRN (09:51)
[2019-11-09] MEDS ORDERED: diphenhydrAMINE 50 MG/ML SDV IVPUSH PRN (09:51)
[2019-11-09] MEDS ORDERED: fentaNYL 100 MCG/2 ML SDV EPIDUR PRN (09:51)
--- NOTE | 2019-11-09 11:59 | PCM.PNLD ---
Labor Progress Note - VS & Meds Vital Signs: Last Vital Signs Temp 36.8 C 11/08/19 23:51 Pulse 82 11/08/19 23:51 Resp 14 11/08/19 23:51 BP 112/74 11/08/19 23:51 Pulse Ox 100 11/08/19 23:51 Active Medications: Current Medications Diphenhydramine HCl (Benadryl) 25 mg IVPUSH Q6H PRN PRN Reason: pruritis Ephedrine Sulfate (Ephedrine Sulfate) 5 mg IVPUSH ASDIRECTED PRN PRN Reason: Hypotension Fentanyl (Sublimaze) 100 mcg EPIDUR Q3H PRN PRN Reason: Pain Last Admin: 11/09/19 10:15 Dose: 100 mcg Fentanyl/Bupivacaine HCl (Fentanyl/Bupivacaine/Ns 2 Mcg-0.125% 100 Ml) 100 ml EPIDUR ASDIRECTED PRN PRN Reason: Pain Last Admin: 11/09/19 10:16 Dose: 100 ml Lactated Ringer's (Ringers, Lactated) 1,000 mls @ 100 mls/hr IV ASDIRECTED [facility] Last Admin: 11/09/19 10:16 Dose: 100 mls/hr Oxytocin/Lactated Ringer's (Pitocin In Lr 10 Units/1,000 Ml) 10 unit in 1,000 mls @ 500 mls/hr IV .CONTINUOUS [facility] Oxytocin/Lactated Ringer's (Pitocin In Lr 10 Units/1,000 Ml) 10 unit in 1,000 mls @ 12 mls/hr IV TITRATE [facility]; Protocol Last Titration: 11/09/19 11:00 Dose: 8 munits/min, 48 mls/hr Nalbuphine HCl (Nubain) 10 mg IVPUSH Q2H PRN PRN Reason: Pain Sodium Chloride (Saline Flush) 10 ml FLUSH ASDIRECTED PRN PRN Reason: Keep Vein Open - Uterine Contractions Uterine Monitoring Mode: External [place] Contraction Intensity: Moderate to Strong - Monitoring Monitor Mode: External Ultrasound Heart Rate (FHR) Baseline: 120 Heart Rate (FHR) Variability: Moderate (6-25 bmp) Accelerations: Present, 15x15 Decelerations: None Strip Review: Category I - Vaginal Exam Dilation (cm): 5-6 Effacement (Percent): 80 Station: 0 Cervical Position: Midposition - Labor Progress (Free Text) Labor Progress: Doing well. Comfortable with epidural in place. Pitocin at 10. Continue present management.
--- NOTE | 2019-11-09 11:59 | PCM.PREANE ---
Preanesthetic Assessment - Procedure Proposed Procedure: matt - Anesthesia/Transfusion/Family Hx Anesthesia History: Prior Anesthesia Without Reaction Family History of Anesthesia Reaction: No Transfusion History: Prior Transfusion Without Reaction Intubation History: Unknown - Review of Systems General: No Symptoms Pulmonary: No Symptoms Cardiovascular: No Symptoms Gastrointestinal: No Symptoms Neurological: No Symptoms Other: Reports: None - Physical Assessment Vital Signs: Last Vital Signs Temp 98.2 F 11/08/19 23:51 Pulse 82 11/08/19 23:51 Resp 14 11/08/19 23:51 BP 112/74 11/08/19 23:51 Pulse Ox 100 11/08/19 23:51 Height: 5 ft 6 in Weight: 69.4 kg ASA Class: 2 Mental Status: Alert & Oriented x3 Airway Class: Mallampati = 1 Dentition: Reports: Normal Dentition Thyro-Mental Finger Breadths: 3 Mouth Opening Finger Breadths: 3 ROM/Head Extension: Full Lungs: Clear to Auscultation, Normal Respiratory Effort Cardiovascular: Regular Rate, Regular Rhythm, No Murmurs - Lab Values: Laboratory Last Values WBC 8.44 K/mm3 (3.98-10.04) 11/09/19 04:04 RBC 4.15 M/mm3 (3.98-5.22) 11/09/19 04:04 Hgb 10.4 gm/dl (11.2-15.7) L D 11/09/19 04:04 Hct 32.6 % (34.1-44.9) L 11/09/19 04:04 MCV 78.6 fl (79.4-94.8) L D 11/09/19 04:04 MCH 25.1 pg (25.6-32.2) L 11/09/19 04:04 MCHC 31.9 g/dl (32.2-35.5) L 11/09/19 04:04 RDW Std Deviation 40.5 fL (36.4-46.3) 11/09/19 04:04 Plt Count 210 K/mm3 (182-369) 11/09/19 04:04 MPV 10.7 fl (9.4-12.3) 11/09/19 04:04 Neut % (Auto) 75.0 % (34.0-71.1) H 11/09/19 04:04 Lymph % (Auto) 16.4 % (19.3-51.7) L 11/09/19 04:04 [place] % (Auto) 5.7 % (4.7-12.5) 11/09/19 04:04 Eos % (Auto) 1.9 (0.7-5.8) 11/09/19 04:04 Baso % (Auto) 0.4 % (0.1-1.2) 11/09/19 04:04 Neut # (Auto) 6.34 K/mm3 (1.56-6.13) H 11/09/19 04:04 Lymph # (Auto) 1.38 K/mm3 (1.18-3.74) 11/09/19 04:04 [place] # (Auto) 0.48 K/mm3 (0.24-0.36) H 11/09/19 04:04 Eos # (Auto) 0.16 K/mm3 (0.04-0.36) 11/09/19 04:04 Baso # (Auto) 0.03 K/mm3 (0.01-0.08) 11/09/19 04:04 Membrane Rupture Positive H 11/09/19 00:12 - Allergies Allergies/Adverse Reactions: Allergies Allergy/AdvReac Type Severity Reaction Status Date / Time No Known Allergies Allergy Verified 10/25/18 02:24 - Blood Blood Available: No - Acknowledgements Anesthesia Type Planned: Epidural Pt an Appropriate Candidate for the Planned Anesthesia: Yes Alternatives and Risks of Anesthesia Discussed w Pt/Guardian: Yes Pt/Guardian Understands and Agrees with Anesthesia Plan: Yes PreAnesthesia Questionnaire - Past Health History Medical/Surgical History: Denies Medical/Surgical History HEENT History: Reports: Impaired Vision Other HEENT History: wears glasses Cardiovascular History: Reports: None Respiratory History: Reports: None Gastrointestinal History: Reports: None Genitourinary History: Reports: None [employer] LIBRARIAN History: Reports: Ectopic , Musculoskeletal History: Reports: None Neurological History: Reports: None Psychiatric History: Reports: None Endocrine/Metabolic History: Reports: None Hematologic History: Reports: Blood Transfusion(s) Immunologic History: Reports: None Oncologic (Cancer) History: Reports: None Dermatologic History: Reports: None - Infectious Disease History Infectious Disease History: Reports: None - Past Surgical History HEENT Surgical History: Reports: Oral Surgery Other HEENT Surgeries/Procedures: wisdom teeth extracted GI Surgical History: Reports: Appendectomy Female Surgical History: Reports: Other (See Below) (left salpingectomy for ectopic ) Endocrine Surgical History: Reports: None Neurological Surgical History: Reports: None Musculoskeletal Surgical History: Reports: None Oncologic Surgical History: Reports: None Dermatological Surgical History: Reports: None - SUBSTANCE USE Smoking Status *Q: Never Smoker Tobacco Use Within Last Twelve Months: No Second Hand Smoke Exposure: No Recreational Drug Use History: No - HOME MEDS Home Medications: Home Meds Prenat 115/Iron Fum/Folic/Dss [ 19 Tablet] 1 each PO 11/09/19 [History] - CURRENT (IN HOUSE) MEDS Current Meds: Current Medications Diphenhydramine HCl (Benadryl) 25 mg IVPUSH Q6H PRN PRN Reason: pruritis Ephedrine Sulfate (Ephedrine Sulfate) 5 mg IVPUSH ASDIRECTED PRN PRN Reason: Hypotension Fentanyl (Sublimaze) 100 mcg EPIDUR Q3H PRN PRN Reason: Pain Last Admin: 11/09/19 10:15 Dose: 100 mcg Fentanyl/Bupivacaine HCl (Fentanyl/Bupivacaine/Ns 2 Mcg-0.125% 100 Ml) 100 ml EPIDUR ASDIRECTED PRN PRN Reason: Pain Last Admin: 11/09/19 10:16 Dose: 100 ml Lactated Ringer's (Ringers, Lactated) 1,000 mls @ 100 mls/hr IV ASDIRECTED [facility] Last Admin: 11/09/19 10:16 Dose: 100 mls/hr Oxytocin/Lactated Ringer's (Pitocin In Lr 10 Units/1,000 Ml) 10 unit in 1,000 mls @ 500 mls/hr IV .CONTINUOUS [facility] Oxytocin/Lactated Ringer's (Pitocin In Lr 10 Units/1,000 Ml) 10 unit in 1,000 mls @ 12 mls/hr IV TITRATE [facility]; Protocol Last Titration: 11/09/19 11:00 Dose: 8 munits/min, 48 mls/hr Nalbuphine HCl (Nubain) 10 mg IVPUSH Q2H PRN PRN Reason: Pain Sodium Chloride (Saline Flush) 10 ml FLUSH ASDIRECTED PRN PRN Reason: Keep Vein Open
--- NOTE | 2019-11-09 16:16 | PCM.DEL ---
L & D Note - General Info Date of Service: 11/09/19 - Delivery Note Labor: Augmented by Oxytocin Delivery Outcome: Livebirth Delivery Method: Spontaneous Vaginal Delivery-Single Delivery Mode: Spontaneous Presentation: Left Occiput Anterior (NICK) Nuchal Cord: Present (x2) Anesthesia Type: Epidural Amniotic Fluid Description: Clear Episiotomy Type: None Laceration: 2nd Degree Suture type: Vicryl Suture size: 2-0 Placenta: Intact, Spontaneous Cord: 3 Vessels Estimated Blood Loss: 200 Resuscitation Needed: Yes [place]: Bulb Syringe, Stimulated, Warmed, [place] Used Delivery Comments (Free Text/Narrative):: Patient found to be complete and began pushing. With maternal pushing effort head delivered from an NICK presentation. Nuchal cord present, but tight and so could not be reduced. With gentle downward traction the shoulders and body delivered. Infant placed on maternal abdomen. Cord clamped and cut. Cord blood obtained. Placenta allowed time to separate and expelled intact. Inspection of the perineum showed 2nd degree laceration which was repaired with a 2-0 vicryl in a running fashion. - General Info Date of Service: 11/09/19 - Patient Data Vitals - Most Recent: Last Vital Signs Temp 36.8 C 11/08/19 23:51 Pulse 82 11/08/19 23:51 Resp 14 11/08/19 23:51 BP 112/74 11/08/19 23:51 Pulse Ox 100 11/08/19 23:51 Weight - Most Recent: 69.4 kg I&O - Last 24 Hours: Intake & Output 11/09/19 11/09/19 11/09/19 06:59 14:59 22:59 Intake Total 2240 Balance 2240 - Problem List & Annotations (1) 39 weeks gestation of SNOMED Code(s): 93410091 Code(s): Z3A.39 - 39 WEEKS GESTATION OF Status: Acute Current Visit: Yes (2) Premature rupture of membranes SNOMED Code(s): 39238534 Code(s): O42.90 - SAMY ROM, 7TH0 BETW RUPT & ONST LABR, UNSP WEEKS OF GEST Status: Acute Current Visit: Yes Qualifiers: PROM onset of labor timing: unspecified duration between rupture of membranes and onset of labor PROM gestational age: full term Qualified Code( s): O42.92 - Full-term premature rupture of membranes, unspecified as to length of time between rupture and onset of labor (3) Vaginal delivery SNOMED Code(s): 947276587 Code(s): O80 - ENCOUNTER FOR FULL-TERM UNCOMPLICATED DELIVERY Status: Acute Current Visit: Yes - Problem List Review Problem List Initiated/Reviewed/Updated: Yes - My Orders Last 24 Hours: My Active Orders 11/09/19 16:14 Patient Status Manage Transfer [TRANSFER] Routine - Assessment Assessment:: PPD#0 - Plan Plan:: * Routine cares * Breast feeding * Discharge home in 1-2 days
[2019-11-09] MEDS ORDERED: Benzocaine/Menthol 20%-0.5% Spray 56 GM Canister TOP PRN (16:39)
[2019-11-09] MEDS ORDERED: Acetaminophen 325 MG Tab PO PRN (16:39)
[2019-11-09] MEDS ORDERED: Witch Hazel Medicated Pads 40/Jar TOP PRN (16:39)
[2019-11-09] MEDS ORDERED: Docusate Sodium 100 MG Cap PO PRN (16:39)
[2019-11-09] MEDS ORDERED: Ibuprofen 600 MG Tab PO PRN (16:39)
--- NOTE | 2019-11-10 07:07 | PCM.PNPP ---
- General Info Date of Service: 11/10/19 Functional Status: Reports: Pain Controlled, Tolerating Diet, Ambulating, Urinating - Review of Systems General: Reports: No Symptoms Pulmonary: Reports: No Symptoms Cardiovascular: Reports: No Symptoms Gastrointestinal: Reports: No Symptoms Genitourinary: Reports: No Symptoms Musculoskeletal: Reports: No Symptoms Neurological: Reports: No Symptoms - Patient Data Vital Signs - Most Recent: Last Vital Signs Temp 36.8 C 11/10/19 04:36 Pulse 75 11/10/19 04:36 Resp 16 11/10/19 04:36 BP 108/78 11/10/19 04:36 Pulse Ox 98 11/10/19 04:36 Weight - Most Recent: 69.4 kg I&O - Last 24 Hours: Intake & Output 11/09/19 11/10/19 11/10/19 22:59 06:59 14:59 Intake Total 14852 Balance 19686 Lab Results - Last 24 Hours: Laboratory Results - last 24 hr 11/09/19 Range/Units 04:04 RPR Non-reactive (NONREACTIVE) Med Orders - Current: Current Medications Acetaminophen (Tylenol) 650 mg PO Q4H PRN PRN Reason: mild pain or fever Benzocaine/Menthol (Dermoplast Pain Relief [place]) 0 gm TOP ASDIRECTED PRN PRN Reason: Perineal Comfort Measure Docusate Sodium (Colace) 100 mg PO BID PRN PRN Reason: Constipation Ibuprofen (Motrin) 600 mg PO Q6H PRN PRN Reason: Mild pain or fever Witch Laverne (Tucks) 1 pad TOP ASDIRECTED PRN PRN Reason: Perineal Comfort Measure Discontinued Medications Diphenhydramine HCl (Benadryl) 25 mg IVPUSH Q6H PRN PRN Reason: pruritis Ephedrine Sulfate (Ephedrine Sulfate) 5 mg IVPUSH ASDIRECTED PRN PRN Reason: Hypotension Fentanyl (Sublimaze) 100 mcg EPIDUR Q3H PRN PRN Reason: Pain Last Admin: 11/09/19 10:15 Dose: 100 mcg Fentanyl/Bupivacaine HCl (Fentanyl/Bupivacaine/Ns 2 Mcg-0.125% 100 Ml) 100 ml EPIDUR ASDIRECTED PRN PRN Reason: Pain Last Admin: 11/09/19 10:16 Dose: 100 ml Lactated Ringer's (Ringers, Lactated) 1,000 mls @ 100 mls/hr IV ASDIRECTED MARCK Last Admin: 11/09/19 10:16 Dose: 100 mls/hr Oxytocin/Lactated Ringer's (Pitocin In Lr 10 Units/1,000 Ml) 10 unit in 1,000 mls @ 500 mls/hr IV .CONTINUOUS MARCK Oxytocin/Lactated Ringer's (Pitocin In Lr 10 Units/1,000 Ml) 10 unit in 1,000 mls @ 12 mls/hr IV TITRATE MARCK; Protocol Last Titration: 11/09/19 15:54 Dose: 500 munits/min, 3,000 mls/hr Nalbuphine HCl (Nubain) 10 mg IVPUSH Q2H PRN PRN Reason: Pain Sodium Chloride (Saline Flush) 10 ml FLUSH ASDIRECTED PRN PRN Reason: Keep Vein Open - Interaction Disposition, : in Room with Family Interaction: Holding Infant Feeding: Breastfed ; Nursed Well Support Person: - Recovery Exam Fundal Tone: Firm Fundal Level: 1 Fingerbreadths Below Umbilicus Fundal Placement: Right Lochia Amount: None Lochia Color: Rubra/Red Perineum Description: Intact, Minimal Bruising/Swelling Other Perinuem Description: second degree laceration with repair Episiotomy/Laceration: None Bladder Status: Voiding Urinary Elimination: Voided - Exam General: Alert, Oriented, Cooperative GI/Abdominal Exam: Soft, Non-Tender Extremities: Normal Inspection Skin: Warm, Dry, Intact - Problem List & Annotations (1) 39 weeks gestation of SNOMED Code(s): 71658801 Code(s): Z3A.39 - 39 WEEKS GESTATION OF Status: Acute Current Visit: Yes (2) Premature rupture of membranes SNOMED Code(s): 52535001 Code(s): O42.90 - SAMY ROM, 7TH0 BETW RUPT & ONST LABR, UNSP WEEKS OF GEST Status: Acute Current Visit: Yes Qualifiers: PROM onset of labor timing: unspecified duration between rupture of membranes and onset of labor PROM gestational age: full term Qualified Code( s): O42.92 - Full-term premature rupture of membranes, unspecified as to length of time between rupture and onset of labor (3) Vaginal delivery SNOMED Code(s): 318522066 Code(s): O80 - ENCOUNTER FOR FULL-TERM UNCOMPLICATED DELIVERY Status: Acute Current Visit: Yes - Problem List Review Problem List Initiated/Reviewed/Updated: Yes - My Orders Last 24 Hours: My Active Orders 11/09/19 16:39 Activity as Tolerated [RC] PER UNIT ROUTINE Vital Signs [RC] ASDIRECTED Acetaminophen [Tylenol] 650 mg PO Q4H PRN Benzocaine/Menthol [Dermoplast Pain Relief [place]] See Dose Instructions TOP ASDIRECTED PRN Docusate Sodium [Colace] 100 mg PO BID PRN Ibuprofen [Motrin] 600 mg PO Q6H PRN witch Laverne [Tucks] 1 pad TOP ASDIRECTED PRN Assess Lochia [WOMSER] Per Unit Routine Assess Uterine Involution [WOMSER] Per Unit Routine Breast Pump [WOMSER] Per Unit Routine Heat Therapy [OM.PC] PRN Ice Therapy [OM.PC] Per Unit Routine Perineal Care [OM.PC] Per Unit Routine Peripheral IV Discontinue [OM.PC] Routine Sitz Bath [OM.PC] Per Unit Routine 11/09/19 Dinner Regular Diet [DIET] 11/10/19 16:39 Heat Therapy [OM.PC] PRN - Assessment Assessment:: PPD#1 - Plan Plan:: * Routine cares * Breast feeding * Discharge home today
--- NOTE | 2019-11-10 07:07 | PCM.DCSUM1 ---
Discharge Summary - Discharge Data Discharge Date: 11/10/19 Discharge Disposition: Home, Self-Care 01 Condition: Good - Referral to Home Health Primary Care Physician: Mata Rojas MD - Discharge Diagnosis/Problem(s) (1) 39 weeks gestation of SNOMED Code(s): 65874837 ICD Code: Z3A.39 - 39 WEEKS GESTATION OF Status: Acute Current Visit: Yes (2) Premature rupture of membranes SNOMED Code(s): 39372946 ICD Code: O42.90 - SAMY ROM, 7TH0 BETW RUPT & ONST LABR, UNSP WEEKS OF GEST Status: Acute Current Visit: Yes Qualifiers: PROM onset of labor timing: unspecified duration between rupture of membranes and onset of labor PROM gestational age: full term Qualified Code( s): O42.92 - Full-term premature rupture of membranes, unspecified as to length of time between rupture and onset of labor (3) Vaginal delivery SNOMED Code(s): 831361285 ICD Code: O80 - ENCOUNTER FOR FULL-TERM UNCOMPLICATED DELIVERY Status: Acute Current Visit: Yes - Patient Summary/Data Complications: None Consults: None Recommended Follow-up Testing/Procedures: Follow up in 3 weeks Hospital Course: Patient is a 29-year-old 011 who presented at 39 and one sevenths weeks with premature rupture of membranes. Was started on Pitocin for augmentation. Progressed well to complete dilation and underwent an uncomplicated vaginal delivery. See delivery note for full details. she did well and was discharged home on day #1 - Patient Instructions Diet: Regular Diet as Tolerated Activity: As Tolerated Activity, Other: Pelvic rest for 6 weeks Driving: May Drive Today Showering/Bathing: May Shower Showering/Bathing, Other: May Bathe Notify Provider of: Fever, Increased Pain, Swelling and Redness, Drainage, Nausea and/or Vomiting - Discharge Plan *PRESCRIPTION DRUG MONITORING PROGRAM REVIEWED*: No *COPY OF PRESCRIPTION DRUG MONITORING REPORT IN PATIENT LIDIA: No Home Medications: Home Meds Docusate Sodium [Colace] 100 mg PO BID PRN cap 11/09/19 [Rx] Ibuprofen [Motrin] 600 mg PO Q6H PRN tablet 11/09/19 [Rx] Prenat 115/Iron Fum/Folic/Dss [ 19 Tablet] 1 each PO 11/09/19 [History] Patient Handouts: and Self-Care, [id number], Breast Engorgement , Care After Vaginal Delivery Referrals: Oriana Mobley MD [Physician] - (3 weeks for check) - Discharge Summary/Plan Comment DC Time >30 min.: No - Patient Data Vitals - Most Recent: Last Vital Signs Temp 36.8 C 11/10/19 04:36 Pulse 75 11/10/19 04:36 Resp 16 11/10/19 04:36 BP 108/78 11/10/19 04:36 Pulse Ox 98 11/10/19 04:36 Weight - Most Recent: 69.4 kg I&O - Last 24 hours: Intake & Output 11/09/19 11/10/19 11/10/19 22:59 06:59 14:59 Intake Total 76057 Balance 15208 Lab Results - Last 24 hrs: Laboratory Results - last 24 hr 11/09/19 Range/Units 04:04 RPR Non-reactive (NONREACTIVE) Med Orders - Current: Current Medications Acetaminophen (Tylenol) 650 mg PO Q4H PRN PRN Reason: mild pain or fever Benzocaine/Menthol (Dermoplast Pain Relief [place]) 0 gm TOP ASDIRECTED PRN PRN Reason: Perineal Comfort Measure Docusate Sodium (Colace) 100 mg PO BID PRN PRN Reason: Constipation Ibuprofen (Motrin) 600 mg PO Q6H PRN PRN Reason: Mild pain or fever Witch [place] (Tucks) 1 pad TOP ASDIRECTED PRN PRN Reason: Perineal Comfort Measure Discontinued Medications Diphenhydramine HCl (Benadryl) 25 mg IVPUSH Q6H PRN PRN Reason: pruritis Ephedrine Sulfate (Ephedrine Sulfate) 5 mg IVPUSH ASDIRECTED PRN PRN Reason: Hypotension Fentanyl (Sublimaze) 100 mcg EPIDUR Q3H PRN PRN Reason: Pain Last Admin: 11/09/19 10:15 Dose: 100 mcg Fentanyl/Bupivacaine HCl (Fentanyl/Bupivacaine/Ns 2 Mcg-0.125% 100 Ml) 100 ml EPIDUR ASDIRECTED PRN PRN Reason: Pain Last Admin: 11/09/19 10:16 Dose: 100 ml Lactated Ringer's (Ringers, Lactated) 1,000 mls @ 100 mls/hr IV ASDIRECTED MARCK Last Admin: 11/09/19 10:16 Dose: 100 mls/hr Oxytocin/Lactated Ringer's (Pitocin In Lr 10 Units/1,000 Ml) 10 unit in 1,000 mls @ 500 mls/hr IV .CONTINUOUS MARCK Oxytocin/Lactated Ringer's (Pitocin In Lr 10 Units/1,000 Ml) 10 unit in 1,000 mls @ 12 mls/hr IV TITRATE MARCK; Protocol Last Titration: 11/09/19 15:54 Dose: 500 munits/min, 3,000 mls/hr Nalbuphine HCl (Nubain) 10 mg IVPUSH Q2H PRN PRN Reason: Pain Sodium Chloride (Saline Flush) 10 ml FLUSH ASDIRECTED PRN PRN Reason: Keep Vein Open
--- NOTE | 2019-11-10 07:16 | PCM48HPAN ---
Post Anesthesia Note - EVALUATION WITHIN 48HRS OF ANESTHETIC Vital Signs in Normal Range: Yes Patient Participated in Evaluation: Yes Respiratory Function Stable: Yes Airway Patent: Yes Cardiovascular Function Stable: Yes Hydration Status Stable: Yes Pain Control Satisfactory: Yes Nausea and Vomiting Control Satisfactory: Yes Mental Status Recovered: Yes Vital Signs: Last Vital Signs Temp 36.8 C 11/10/19 04:36 Pulse 75 11/10/19 04:36 Resp 16 11/10/19 04:36 BP 108/78 11/10/19 04:36 Pulse Ox 98 11/10/19 04:36
== END 2019-11-10 16:45 | disposition home or self-care (01) | DRG 560 ==
LOC: JD.OB 15:54 → OBSVTOIN 11-09 15:54 → JD.OB 11-09 15:55
PROVIDERS: ADMIT Obstetrics & Gynecology; ATTEND Obstetrics & Gynecology
PROC: 10E0XZZ Delivery of Products of Conception, External Approach (ICD-10-PCS; principal; 2019-11-09)
PROC: 0KQM0ZZ Repair Perineum Muscle, Open Approach (ICD-10-PCS; 2019-11-09)
PROC: 10907ZC Drainage of Amniotic Fluid, Therapeutic from Products of Conception, Via Natural or Artificial Opening (ICD-10-PCS; 2019-11-09)
PROC: 3E0R3BZ Introduction of Anesthetic Agent into Spinal Canal, Percutaneous Approach (ICD-10-PCS; 2019-11-09)
DX: O42.02 Full-term premature rupture of membranes, onset of labor within 24 hours of rupture (principal); Z3A.39 39 weeks gestation of pregnancy; Z37.0 Single live birth; Z79.899 Other long term (current) drug therapy; O69.1XX0 Labor and delivery complicated by cord around neck, with compression, not applicable or unspecified; O70.1 Second degree perineal laceration during delivery
CPT/HCPCS: 01967; 36415; 51701; 51702; 59025; 59409; 84112; 85025; 86592; A9270-GY; J2590; J3010; J3490; J7120